=== PATIENT | female | born 1945 | race Caucasian/White ===

== ENCOUNTER 2019-12-09 13:27 | Emergency (ER) | payer MEDICARE, BC, SELFPAY ==
--- NOTE | ~2019-12-09 | XR_ITS ---
XR ribs RT 2V DATE: 12/09/2019 14:02 INDICATION: Fall. Right lower rib pain. TECHNIQUE: 3 views of right ribs COMPARISON: None FINDINGS: There is a recent linear virtually nondisplaced fracture of the posterolateral right eighth rib. There is a fracture of uncertain age along the anterior aspect of the right eighth rib. Additional no ndisplaced rib fracture is not excluded. Osteopenia. Diffuse idiopathic skeletal hyperostosis of the thoracic spine. No right pleural effusion or pneumothorax. Surgical clips, right upper quadrant, consistent with cholecystectomy. IMPRESSION: Right eighth rib fracture(s) Reviewed, dictated and finalized at location A.
[2019-12-09 13:42] VITALS: BP 147/75; PULSE 85; RESP 16; TEMP 37.3; O2SAT 97
--- NOTE | 2019-12-09 13:47 | ED.BACK ---
HPI - Back Pain/Injury General Chief Complaint: Back Pain/Injury Stated Complaint: fall,back injury Time Seen by Provider: 12/09/19 13:44 Source: patient and RN notes reviewed Mode of arrival: ambulatory Limitations: no limitations History of Present Illness HPI Narrative: 74-year-old female presents with concern for right mid back pain after a fall 3 days ago. Reports she fell landing on her right side causing an bruising to her right arm and right knee. Patient reports she is concern for a back injury because she had a slipped disc several years ago. Patient reports she took pain pills and muscle relaxers given to her by her daughter which relieved the pain. She reports pain worsens with deep breathing or coughing. She denies any midline back tenderness. Denies any bruising, redness, open skin. Denies any perianal anesthesia, loss of bowel or bladder function, shortness of breath, abdominal pain. MD elicited complaint: fall Related Data Home Medications Medication Instructions Recorded Confirmed acetaminophen 325 mg tablet 325 mg PO Q6H PRN 08/23/19 08/25/19 aspirin 325 mg tablet,delayed 325 mg PO BID 08/23/19 08/25/19 release calcium carbonate-vitamin D3 600 1 tablet PO BID 08/23/19 08/25/19 mg (1,500 mg)-800 unit tablet celecoxib 200 mg capsule 200 mg PO BID 08/23/19 08/25/19 cholecalciferol (vitamin D3) 25 1,000 unit PO DAILY 08/23/19 08/25/19 mcg (1,000 unit) capsule coenzyme Q10 200 mg capsule 200 mg PO DAILY 08/23/19 08/25/19 glucosamin 375 mg-chond 300 cap PO 08/23/19 08/25/19 mg-collagen 50 mg-hyaluronic acid 2 mg cap romngdis-sxo-qxhcu ac 400 tablet PO 08/23/19 08/25/19 mcg-calcium carb 500 mg-vit K1 20 mcg tablet peg 400-propylene glycol 0.4 %-0.3 1 drop EACH EYE DAILY PRN 08/23/19 08/25/19 % eye drops polyethylene glycol 3350 17 17 gm PO DAILY 08/23/19 08/25/19 gram/dose oral powder sennosides 8.6 mg-docusate sodium 1 tab-cap PO DAILY 01/31/20 02/02/20 50 mg tablet vitamin B complex 1 tablet PO DAILY 08/23/19 08/25/19 Allergies Allergy/AdvReac Type Severity Reaction Status Date / Time Sulfa (Sulfonamide Allergy Mild hives Verified 12/09/19 13:53 Antibiotics) oxycodone Allergy Unknown shaking Verified 12/09/19 13:53 sulfite Allergy Unknown HIVES, Verified 12/09/19 13:53 SWELLING Review of Systems Review of Systems: Narrative: CONSTITUTIONAL: Denies malaise, chills, sweats, or fever. CARDIOVASCULAR: Denies chest pain, palpitations, or edema. RESPIRATORY: Denies dyspnea. GASTROINTESTINAL: Denies abdominal pain GENITOURINARY: Denies dysuria or hematuria. SKIN: Reports right arm and right leg bruising MUSCULOSKELETAL: Denies mid back pain. Reports right posterior rib pain NEUROLOGIC: Denies numbness, weakness, or headache. All systems reviewed & are unremarkable except as noted in HPI and below PMFSH Past Medical History Medical History (Updated 12/09/19 @ 14:29 by Amanda Hackett NP) Arthritis GERD (gastroesophageal reflux disease) Mixed hyperlipidemia Normal nuclear stress test Osteopenia after menopause Syncopal episodes Surgical History Surgical History (Updated 08/25/19 @ 13:45 by Valerie Blackburn MD) History of total knee arthroplasty R Family History Family History (Updated 04/26/18 @ 09:35 by DOCTOR UNKNOWN) Sibling Patient's sister is in good health Family history of diabetes mellitus in first degree relative Father Cerebrovascular accident Family history of arthritis Grandparent Cerebrovascular accident Family history of dementia Mother Family history of lung cancer Social History Social History (Updated 08/23/19 @ 09:51 by Gema Sanchez) Social History: Smoking status: Never smoker Second hand tobacco smoke exposure: No Alcohol intake: never Substance use: never Substance use type: does not use Gender identity (if verbalized by the patient): Female Comments At time of signature,
== END 2019-12-09 14:50 | disposition home or self-care (01) ==
PROVIDERS: Emergency Provider Nurse Practitioner; PCP Family Medicine
DX: S22.41XA Multiple fractures of ribs, right side, 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 for closed fracture (principal); W19.XXXA Unspecified fall, 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; E78.00 Pure hypercholesterolemia, unspecified; K21.9 Gastro-esophageal reflux disease without esophagitis
CPT/HCPCS: 71100; 99213; G0463

== ENCOUNTER 2019-12-24 11:34 | Outpatient (CLI) | payer MEDICARE, BC, SELFPAY ==
--- NOTE | ~2019-12-24 | XR_ITS ---
EXAMINATION: XR knee RT 3V DATE: 12/24/2019 11:57 INDICATION: Right knee pain. TECHNIQUE: 3 views of right knee were obtained. COMPARISON: Right knee radiographs 10/22/2018 FINDINGS: There is a total right knee arthroplasty with patellar resurfacing in near-anatomic alignme nt. No periprosthetic lucency to suggest loosening or infection. No fracture. No knee joint effusion. IMPRESSION: 1. Total right knee arthroplasty in near-anatomic alignment. Reviewed, dictated and finalized at location A.
== END 2019-12-24 11:35 | disposition home or self-care (01) ==
PROVIDERS: PCP Family Medicine; Visit Provider Physician Assistant
DX: S89.91XA Unspecified injury of right lower leg, 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 (principal); X58.XXXA Exposure to other specified factors, 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
CPT/HCPCS: 73562

== ENCOUNTER 2019-12-25 22:41 | Inpatient (IN) | payer MEDICARE, BC, SELFPAY ==
--- NOTE | ~2019-12-25 | XR_ITS ---
EXAMINATION: XR ERCP DATE: 12/27/2019 11:35 INDICATION: Gallstones with right upper quadrant abdominal pain. TECHNIQUE: Fluoroscopic spot images of the right upper quadrant were obtained during endoscopic retro grade cholangiopancreatography (ERCP) performed by Dr. Braden. Radiologist was not present f or the imaging or procedure. The amount of fluoroscopy time used during this procedure was 2.3 minute s. COMPARISON: None. FINDINGS: A catheter and balloon extend from an endoscope into the contrast opacified common bile duct which is dilated to approximately 11 mm. No mucosal irregularities, strictures or stones identified within th e common bile duct. There are also few mildly dilated contrast opacified intrahepatic bile ducts in t he left hepatic lobe. Cholecystectomy clips. IMPRESSION: 1. No evident filling defects within the mildly dilated common bile duct. Please refer to the ERCP pr ocedure note for additional details. Reviewed, dictated and finalized at location A. IMPRESSION: 1. No evident filling defects within the mildly dilated common bile duct. Pleas e refer to the ERCP procedure note for additional details.
--- NOTE | ~2019-12-25 | CT_ITS ---
EXAMINATION: CT abdomen pelvis w con DATE: 12/25/2019 23:58 INDICATION: Generalized abdominal pain. Nausea and vomiting. Diarrhea. TECHNIQUE: Computed tomography (CT) of the abdomen and pelvis was performed with 100 mL Omnipaque 350 intravenous contrast. Automated exposure control and iterative reconstruction technique were employe d. The dose-length product was 693.57 mGy-cm. COMPARISON: None. FINDINGS: The visualized portions of the lung bases. Mild atelectasis. No pleural effusion. The heart size is normal. No pericardial effusion. There is mild intrahepatic biliary duct dilatation and dila tation of the common duct to 11 mm. There is a 6 mm stone in the common bile duct best seen on adorno l images. There are changes of cholecystectomy. The spleen, pancreas, adrenal glands, and right kidne y are normal. There is an 11 mm cyst in left kidney. There is diverticulosis of the colon without bev dence of diverticulitis. There are no dilated loops of bowel. The appendix is normal. There are no pa thologically enlarged lymph nodes. There is no free intraperitoneal fluid. There is severe lower lumb ar spondylosis. IMPRESSION: 1. 6 mm stone in the common bile duct with mild intrahepatic and extrahepatic biliary duct dilatation . Reviewed, dictated and finalized at location A. IMPRESSION: 1. 6 mm stone in the common bile duct with mild intrahepatic and extrahepatic b iliary duct dilatation.
[2019-12-25 22:45] VITALS: BP 142/69; PULSE 94; RESP 19; TEMP 36.7; O2SAT 98
[2019-12-25 23:18] LABS: Basophils Percent Auto 0.1 % (0.2-1.2); Hematocrit 45.7 % (37.0-47.0); Hemoglobin 15.5 g/dL (12.0-15.0); Immature Granulocyte Absolute 0.03 K/mm3 (0.00-0.031); Immature Granulocyte Percent A 0.4 % (0-0.5); Lymphocytes Absolute Auto 0.79 K/mm3 (0.9-3.2); Lymphocytes Percent Auto 9.7 % (18.3-44.2); Mean Corpuscular HGB Conc 33.9 g/dl (32-36); Mean Corpuscular Hemoglobin 30.5 pg (26-34); Mean Corpuscular Volume 89.8 fl (80-100); Mean Platelet Volume 9.7 fl (7.4-10.4); Monocytes Absolute Auto 0.4 K/mm3 (0.1-0.6); Monocytes Percent Auto 4.9 % (2.6-8.5); Neutrophils Absolute Auto 6.9 K/mm3 (1.3-6.7); Neutrophils Percent Auto 84.9 % (45.5-73.1); Platelet Count Result 314 k/mm3 (150-375); Red Blood Count 5.09 M/mm3 (4.2-5.4); Red Cell Distribution Width 12.4 % (11.5-14.5); White Blood Count 8.1 K/mm3 (4.5-10.0)
[2019-12-25 23:25] VITALS: BP 126/85; BP 151/72; PULSE 74; PULSE 87
[2019-12-25 23:27] VITALS: BP 109/73; PULSE 95
[2019-12-25 23:28] VITALS: BP 109/73; PULSE 90; RESP 18; O2SAT 100
[2019-12-25 23:29] LABS: Alanine Aminotransferase 19 U/L (4-35); Albumin Level 4.8 g/dL (3.5-5.1); Alkaline Phosphatase 140 U/L (38-126); Aspartate Amino Transferase 31 U/L (14-36); Bilirubin,Total 0.8 mg/dL (0.2-1.3); Blood Urea Nitrogen 18 mg/dL (7-17); Calcium 10.6 mg/dL (8.4-10.2); Carbon Dioxide 29 mmol/L (22-30); Chloride 97 mmol/L (98-107); Estimated CRCL calculation 49 ml/min; Estimated Glomerular Filt Rate > 60; Glucose 160 mg/dL (65-105); Lipase 67 U/L (23-300); Potassium 3.8 mmol/L (3.4-5.0); Sodium 136 mmol/L (137-145)
[2019-12-25] MEDS: SODIUM CHLORIDE 0.9% IV 1,000 ML 999 ML IV CONT (23:41)
[2019-12-25] MEDS: ONDANSETRON INJ 4 MG/2 ML VIAL IV PUSH (23:41)
[2019-12-25 23:51] LABS: Add Urine Microscopic? YES; Amorphous Sediment Urine Few; Appearance Urine Cloudy (Clear); Bacteria Urine Trace /hpf; Bilirubin Urine Negative (Negative); Blood Urine Negative (Negative); Color Urine Amber (Yellow); Glucose Urine UA Negative (Negative); Ketones Urine 2+ mg/dL (Negative); Leukocyte Esterase Ur Negative LEU/UL (Negative); Mucus Urine Rare /lpf; Nitrate Urine Negative (Negative); Protein Urine 1+ mg/dL (Negative); Specific Grav Ur 1.015 (1.001-1.035); Squamous Epithelial Cell Urine Occasional /hpf (Few); Urobilinogen Urine Negative mg/dL (<2.0)
--- NOTE | 2019-12-25 23:57 | ED.NAVMDI ---
HPI - Nausea/Vomiting/Diarrhea General Chief complaint: Nausea/Vomiting/Diarrhea Stated complaint: VOMITING. Time Seen by Provider: 12/25/19 22:49 Source: RN notes reviewed History of Present Illness HPI Narrative: Patient presents emergency department from home for nausea vomiting diarrhea. Patient states that symptoms started this morning states he is had numerous episodes of nausea vomiting as well as diarrhea patient states is associated with diffuse abdominal pain described as cramping she denies any fevers or chills chest pain shortness of breath or any other symptoms patient does note 2 weeks ago she fell and broke her right rib has been on pain medication for this. She states that she last took tramadol this morning Related Data Home Medications Medication Instructions Recorded Confirmed acetaminophen 325 mg tablet 325 mg PO Q6H PRN 08/23/19 12/24/19 aspirin 325 mg tablet,delayed 325 mg PO BID 08/23/19 12/24/19 release calcium carbonate-vitamin D3 600 1 tablet PO BID 08/23/19 12/24/19 mg (1,500 mg)-800 unit tablet celecoxib 200 mg capsule 200 mg PO BID 08/23/19 12/24/19 cholecalciferol (vitamin D3) 25 1,000 unit PO DAILY 08/23/19 12/24/19 mcg (1,000 unit) capsule coenzyme Q10 200 mg capsule 200 mg PO DAILY 08/23/19 12/24/19 glucosamin 375 mg-chond 300 cap PO 08/23/19 12/24/19 mg-collagen 50 mg-hyaluronic acid 2 mg cap mpkvetzm-uxg-totnb ac 400 tablet PO 08/23/19 12/24/19 mcg-calcium carb 500 mg-vit K1 20 mcg tablet peg 400-propylene glycol 0.4 %-0.3 1 drop EACH EYE DAILY PRN 08/23/19 12/24/19 % eye drops polyethylene glycol 3350 17 17 gm PO DAILY 08/23/19 12/24/19 gram/dose oral powder sennosides 8.6 mg-docusate sodium 1 tab-cap PO DAILY 08/23/19 12/24/19 50 mg tablet vitamin B complex 1 tablet PO DAILY 08/23/19 12/24/19 Allergies Allergy/AdvReac Type Severity Reaction Status Date / Time Sulfa (Sulfonamide Allergy Mild hives Verified 12/24/19 09:59 Antibiotics) oxycodone Allergy Unknown shaking Verified 12/24/19 09:59 sulfite Allergy Unknown HIVES, Verified 12/24/19 09:59 SWELLING Review of Systems Review of Systems: Narrative: Gen.: Denies fevers or chills ENT: Denies congestion Respiratory: Denies shortness of breath or cough CV: Denies chest pain or palpitations GI: See HPI denies burning, urgency, frequency or hematuria Musculoskeletal: Denies back pain or muscle pain Neuro: Denies numbness, tingling, weakness or focal weakness Skin: Denies rash Except as documented, all other systems reviewed and negative [facility] Past Medical History Medical History Arthritis GERD (gastroesophageal reflux disease) Mixed hyperlipidemia Normal nuclear stress test Osteopenia after menopause Syncopal episodes Surgical History Surgical History (Updated 08/25/19 @ 13:45 by Valerie Blackburn MD) History of total knee arthroplasty R Family History Family History (Updated 04/26/18 @ 09:35 by DOCTOR UNKNOWN) Sibling Patient's sister is in good health Family history of diabetes mellitus in first degree relative Father Cerebrovascular accident Family history of arthritis Grandparent Cerebrovascular accident Family history of dementia Mother Family history of lung cancer Social History Social History Social History: Smoking status: Never smoker Second hand tobacco smoke exposure: No Alcohol intake: never Substance use: never Substance use type: does not use Gender identity (if verbalized by the patient): Female Exam Narrative: Exam Narrative: APPEARANCE: No acute distress, nontoxic, resting in bed HEENT: Normocephalic, atraumatic, OMM RESPIRATORY: No respiratory distress, clear to auscultation bilaterally with no rhonchi wheezing or rales CARDIOVASCULAR: RRR s murmur ABDOMINAL: Soft, nondistended, diffusely tender
[2019-12-26 01:07] VITALS: BP 124/50; PULSE 84; RESP 19; TEMP 37.2; O2SAT 100
[2019-12-26 01:50] VITALS: BP 136/60; PULSE 80; RESP 19; TEMP 37; O2SAT 100
[2019-12-26] MEDS: ONDANSETRON INJ 4 MG/2 ML VIAL IV PUSH ×4 (01:51→19:46)
[2019-12-26 02:49] VITALS: BP 126/52; PULSE 75; RESP 19; O2SAT 100
[2019-12-26 03:25] VITALS: BP 125/53; PULSE 88; RESP 19; TEMP 37.2; O2SAT 100
--- NOTE | 2019-12-26 03:37 | ADMGEN ---
This patient, Kristi Agrawal, was admitted to Medical Room 340-01. Patient/family oriented to hospital policies and general routines including ID bracelet, bed and alarms, visiting hours, pain management, procedures, bathroom and other care routines, personal items, smoking policy, room service/diet, and visiting hours. Valuables list has been completed. Information on how to activate the Rapid Response Team has been discussed. Patient/Family are encouraged to report perceived risks to care and to ask questions if they do not understand what they are told or what they should do.
[2019-12-26 03:39] VITALS: BP 145/58; PULSE 79; RESP 16; TEMP 36.2; O2SAT 99
[2019-12-26 03:40] VITALS: BMI 32.1
[2019-12-26] MEDS: SODIUM CHLORIDE 0.9% IV 1,000 ML 125 ML IV CONT ×3 (03:54→21:17)
[2019-12-26] MEDS: PANTOPRAZOLE SODIUM IV 40 MG VIAL IV PUSH (09:30)
[2019-12-26] MEDS: FLUTICASONE PROPIONATE 0.05% NA SPR 16 GM BTL (*BKC) 1 SPRAY NASAL (09:30)
--- NOTE | 2019-12-26 11:30 | PM.IMHP ---
H&P: HPI History of Present Illness Chief complaint: Choledocholithiasis Narrative: Kristi Agrawal is a 74 year old female with PMH significant for GERD, arthritis, osteopenia, and HLD who presented to the ED with c/o nasuea, vomiting, and diarrhea that started yesterday morning. She reports frequent and loose light brown stools, bright yellow vomiting, and profound nausea. She deneis hematemesis, melena, and hematochezia. She also reports dull periumbilical abdominal discomfort. She recently suffered a fall 12/05. She was evaluated in the ED 12/08 and sustained a right eighth rib fracture and notes some residual tenderness in that area. She is s/p cholecystectomy in 1997. She denies chest pain and shortness of breath. She notes belching. She tried to eat a small amount of jello yesterday which caused her to vomit. She has no other concerns at this time. Initial workup in the ED revealed WBC 8,100, Hb 15.5, Hct 45.7, sodium 136, potassium 3.8, chloride 97, CO2 29, BUN 18, Cr 0.8, random glucose of 160, bilirubin 0.8, AST 31, ALT 19, ALP 140, lipase 67, and calcium 10.6. CT abd/pelvis revealed a 6mm in the common bile duct with mild intrahepatic and extrahepatic biliary dilatation. Review of Systems Review of Systems: Narrative: Constitutional: Denies fever and malaise. Reports occasional chills. Appetite is poor at this time due to nausea. Denies weight loss. Eyes: Denies vision change. No additional eye complaints. ENT: Denies change in hearing, nasal congestion, dysphagia, odynophagia, and sore throat. Cardiovascular: Denies palpitations and chest pain. Denies PND and orthopnea. Denies dyspnea on exertion. Respiratory: Denies cough and shortness of breath. Gastrointestinal: As above. Genitourinary: Denies dysuria, frequency, urgency, hematuria, and hesitancy. Musculoskeletal: Reports lower rib discomfort following right 8th rib fracture. Reports mild right knee discomfort after her fall. Denies further joint pain and swelling. Denies muscle cramps and weakness. Skin: Denies lesions or wounds. Neurologic: Denies focal weakness, paresthesias, confusion, and speech change. Psychiatric: Denies mood change. Hematologic: Denies easy bruising and bleeding. She does note bruises from her fall. All systems reviewed & are unremarkable except as noted in HPI and below PMFSH Past Medical History Medical History (Updated 12/26/19 @ 11:57 by Paty Murray PA-C) Arthritis Fracture of one rib, right side, subsequent encounter for fracture with routine healing GERD (gastroesophageal reflux disease) Mixed hyperlipidemia Normal nuclear stress test Osteopenia after menopause Syncopal episodes Surgical History Surgical History (Updated 12/26/19 @ 11:49 by Paty Murray PA-C) History of total knee arthroplasty R S/P carpal tunnel release S/P cholecystectomy Family History Family History (Updated 12/26/19 @ 11:49 by Paty Murray PA-C) Sibling Patient's sister is in good health Father Cerebrovascular accident Grandparent Cerebrovascular accident Mother Lung cancer Social History Social History (Updated 12/26/19 @ 11:52 by Ptay Murray PA-C) Social History: The patient is . 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 She wishes to be a full code and has designated her son Minh Lujan as her surrogate decision maker. Years smoked: 3 Smoking status: Former smoker Tobacco type: cigarettes Second hand tobacco smoke exposure: No Alcohol intake: never Substance use: never Substance use type: does not use Gender identity (if verbalized by the patient): Female Spiritual care concerns: No Meds Home Medications and Allergies Home Medications Medication Instructions Recorded Confirmed Type fluticasone propionate 50 1 spray INTRANASAL BID #3 vial 06/03/19 12/26/19 Rx mcg/actuation nasal spray,suspension acetaminophen
--- NOTE | 2019-12-26 12:32 | WPDGICN ---
Assessment and Plan Assessment and plan (1) Choledocholithiasis: Code(s): K80.50 - Calculus of bile duct without cholangitis or cholecystitis without obstruction Status: Acute Assessment and Plan: will proceed with ERCP tomorrow, continue with supportive care ok to try liquid diet today and npo after midnight (2) Nausea and vomiting in adult: Code(s): R11.2 - Nausea with vomiting, unspecified Status: Acute Assessment and Plan: on medical treatment (3) GERD (gastroesophageal reflux disease): Qualifiers: Esophagitis presence: without esophagitis Qualified Code(s): K21.9 - Gastro-esophageal reflux disease without esophagitis Code(s): K21.9 - Gastro-esophageal reflux disease without esophagitis Status: Chronic (4) Other specified injuries of right lower leg, subsequent encounter: Code(s): S89.81XD - Other specified injuries of right lower leg, subsequent encounter Status: Acute GI Consult Note Consult date/time: 12/26/19 12:32 Reason for consult: n/v, choledocholithiasis HPI: Kristi Agrawal is a 74 year old female with history of GERD, osteopenia with most recent visit to the hospital after she sustained a fall 12/05 with right eighth rib fracture treated medically. She came to ED with new onset of nasuea, vomiting, and diarrhea that started yesterday morning. She also had dull periumbilical abdominal discomfort. She had cholecystectomy in 1997. Blood work showed WBC 8,100, Hb 15.5, bilirubin 0.8, AST 31, ALT 19, ALP 140, lipase 67. CT abd/pelvis revealed a 6mm in the common bile duct with mild intrahepatic and extrahepatic biliary dilatation. She is admitted to the hospital, still nauseous. Denies fever but had some chills. Review of Systems Constitutional: Constitutional: Denies headache(s) and Denies weakness Eyes: Eyes: Denies blurry vision ENT: Reports Normal hearing present, Denies headache(s) and Denies neck pain Cardiovascular: Cardiovascular: Denies chest pain and Denies dyspnea Respiratory: Respiratory: Denies dyspnea Gastrointestinal: Gastrointestinal: Reports diarrhea, Reports nausea and Reports vomiting Genitourinary: Genitourinary: Denies dysuria Musculoskeletal: Musculoskeletal: Denies neck pain Integumentary/Breasts: Skin/Breast: Denies dry skin Neurologic: Reports Normal hearing present, Denies headache(s) and Denies weakness Psychiatric: Psychiatric: Denies anxiety Endocrine: Endocrine: Denies change in body appearance Hematologic/Lymphatic: Hematologic/Lymphatic: Denies easy bleeding Allergic/Immunologic: Allergic/Immunologic: Denies urticaria PMFSH Past Medical History Medical History (Updated 12/26/19 @ 12:36 by Austin Braden MD) Arthritis Fracture of one rib, right side, subsequent encounter for fracture with routine healing GERD (gastroesophageal reflux disease) Mixed hyperlipidemia Nausea and vomiting in adult Normal nuclear stress test Osteopenia after menopause Syncopal episodes Surgical History Surgical History (Updated 12/26/19 @ 11:49 by Paty Murray PA-C) History of total knee arthroplasty R S/P carpal tunnel release S/P cholecystectomy Family History Family History (Updated 12/26/19 @ 11:49 by Paty Murray PA-C) Sibling Patient's sister is in good health Father Cerebrovascular accident Grandparent Cerebrovascular accident Mother Lung cancer Social History Social History (Updated 12/26/19 @ 11:52 by Paty Murray PA-C) Social History: The patient is . 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 She wishes to be a full code and has designated her son Minh Lujan as her surrogate decision maker. Years smoked: 3 Smoking status: Former smoker Tobacco type: cigarettes Second hand tobacco smoke exposure: No Alcohol intake: never Substance use: never Substance use type: does no
[2019-12-26 13:14] LABS: Alanine Aminotransferase 14 U/L (4-35); Albumin Level 3.8 g/dL (3.5-5.1); Alkaline Phosphatase 104 U/L (38-126); Aspartate Amino Transferase 29 U/L (14-36); Bilirubin,Total 0.7 mg/dL (0.2-1.3); Blood Urea Nitrogen 16 mg/dL (7-17); Calcium 8.9 mg/dL (8.4-10.2); Carbon Dioxide 25 mmol/L (22-30); Chloride 106 mmol/L (98-107); Estimated CRCL calculation 48 ml/min; Estimated Glomerular Filt Rate > 60; Glucose 108 mg/dL (65-105); Potassium 3.5 mmol/L (3.4-5.0); Sodium 138 mmol/L (137-145)
[2019-12-26 14:40] VITALS: BP 105/55; PULSE 83; RESP 16; TEMP 36.9; O2SAT 97
[2019-12-27] VITALS (14 sets, daily range): BP systolic 120–170; BP diastolic 53–78; PULSE 57–79; RESP 16–23; TEMP 36.1–37.1; O2SAT 97–100
[2019-12-27] MEDS: SODIUM CHLORIDE 0.9% IV 1,000 ML 125 ML IV CONT ×2 (04:52→16:08)
[2019-12-27 05:38] LABS: Basophils Percent Auto 0.4 % (0.2-1.2); Eosinophils Percent Auto 0.8 % (0-4.4); Hematocrit 37.3 % (37.0-47.0); Hemoglobin 12.1 g/dL (12.0-15.0); Immature Granulocyte Absolute 0.02 K/mm3 (0.00-0.031); Immature Granulocyte Percent A 0.4 % (0-0.5); Lymphocytes Absolute Auto 1.53 K/mm3 (0.9-3.2); Lymphocytes Percent Auto 29.5 % (18.3-44.2); Mean Corpuscular HGB Conc 32.4 g/dl (32-36); Mean Corpuscular Volume 92.3 fl (80-100); Mean Platelet Volume 9.9 fl (7.4-10.4); Monocytes Absolute Auto 0.6 K/mm3 (0.1-0.6); Monocytes Percent Auto 10.6 % (2.6-8.5); Neutrophils Percent Auto 58.3 % (45.5-73.1); Platelet Count Result 235 k/mm3 (150-375); Red Blood Count 4.04 M/mm3 (4.2-5.4); Red Cell Distribution Width 12.6 % (11.5-14.5); White Blood Count 5.2 K/mm3 (4.5-10.0)
[2019-12-27 06:02] LABS: Alanine Aminotransferase 13 U/L (4-35); Albumin Level 3.2 g/dL (3.5-5.1); Alkaline Phosphatase 79 U/L (38-126); Aspartate Amino Transferase 29 U/L (14-36); Bilirubin,Total 0.4 mg/dL (0.2-1.3); Blood Urea Nitrogen 9 mg/dL (7-17); Calcium 8.1 mg/dL (8.4-10.2); Carbon Dioxide 26 mmol/L (22-30); Chloride 107 mmol/L (98-107); Estimated CRCL calculation 55 ml/min; Estimated Glomerular Filt Rate > 60; Glucose 96 mg/dL (65-105); Potassium 3.3 mmol/L (3.4-5.0); Sodium 137 mmol/L (137-145)
--- NOTE | 2019-12-27 08:20 | WPDANESEPPF ---
Anes - Initial Pre Proc Eval Procedure: Operation Date: 12/27/19 10:15 Proposed Procedures p Endoscopic Retro Cholangiopancreatogram - Austin Braden MD Date/Time: 12/27/19 08:20 Pre Op Diagnosis: Choledocholithiasis Patient Data Age: 74 Gender: F Height: 1.52 m Weight: 74.6 kg Last Vital Signs Temp 36.8 C 12/27/19 04:42 Pulse 73 12/27/19 04:42 Resp 18 12/27/19 04:42 BP 120/58 L 12/27/19 04:42 Pulse Ox 98 12/27/19 04:42 Allergies Allergy/AdvReac Type Severity Reaction Status Date / Time Sulfa (Sulfonamide Allergy Mild hives Verified 12/24/19 09:59 Antibiotics) oxycodone Allergy Unknown shaking Verified 12/24/19 09:59 sulfite Allergy Unknown HIVES, Verified 12/24/19 09:59 SWELLING Home Medications Medication Instructions Recorded Confirmed Type fluticasone propionate 50 1 spray INTRANASAL BID #3 vial 06/03/19 12/26/19 Rx mcg/actuation nasal spray,suspension acetaminophen 325 mg tablet 325 mg PO Q6H PRN 08/23/19 12/26/19 History calcium carbonate-vitamin D3 600 1 tablet PO BID 08/23/19 12/26/19 History mg (1,500 mg)-800 unit tablet cholecalciferol (vitamin D3) 25 1,000 unit PO DAILY 08/23/19 12/26/19 History mcg (1,000 unit) capsule coenzyme Q10 200 mg capsule 200 mg PO DAILY 08/23/19 12/26/19 History glucosamin 375 mg-chond 300 1 cap PO DAILY 08/23/19 12/26/19 History mg-collagen 50 mg-hyaluronic acid 2 mg cap sxyxzhjw-lcj-ronke ac 400 1 tablet PO DAILY 08/23/19 12/26/19 History mcg-calcium carb 500 mg-vit K1 20 mcg tablet pantoprazole 40 mg tablet,delayed 40 mg PO QAM #90 tablet 08/23/19 12/26/19 Rx release vitamin B complex 1 tablet PO DAILY 08/23/19 12/26/19 History alendronate 70 mg tablet 70 mg PO WEEKLY #14 tablet 10/07/19 12/26/19 Rx pravastatin 20 mg tablet 20 mg PO DAILY #90 tablet 11/22/19 12/26/19 Rx tramadol 50 mg tablet 50 mg PO Q6H PRN #30 tablet 12/24/19 12/26/19 Rx camphor-methyl salicyl-menthol 1 patch TOPICAL DAILY 12/26/19 12/26/19 History [Salonpas] polyethylene glycol 3350 [Miralax] 17 g PO DAILY PRN 12/26/19 12/26/19 History sennosides [senna] 8.6 mg PO BID PRN 12/26/19 12/26/19 History Laboratory Tests 12/26/19 12/27/19 12/27/19 12:13 04:38 04:38 WBC 5.2 K/mm3 K/mm3 (4.5-10.0) RBC 4.04 M/mm3 L M/mm3 (4.2-5.4) Hgb 12.1 g/dL D g/dL (12.0-15.0) Hct 37.3 % % (37.0-47.0) MCV 92.3 fl fl (80-100) MCH 30.0 pg pg (26-34) MCHC 32.4 g/dl g/dl (32-36) RDW 12.6 % % (11.5-14.5) Plt Count 235 k/mm3 k/mm3 (150-375) MPV 9.9 fl fl (7.4-10.4) Immature Gran % (Auto) 0.4 % % (0-0.5) Neut % (Auto) 58.3 % % (45.5-73.1) Lymph % (Auto) 29.5 % % (18.3-44.2) [place] % (Auto) 10.6 % H % (2.6-8.5) Eos % (Auto) 0.8 % % (0-4.4) Baso % (Auto) 0.4 % % (0.2-1.2) Lymph # (Auto) 1.53 K/mm3 K/mm3 (0.9-3.2) [place] # (Auto) 0.6 K/mm3 K/mm3 (0.1-0.6) Eos # (Auto) 0.0 K/mm3 K/mm3 (0-0.3) Baso # (Auto) 0.0 K/mm3 K/mm3 (0.0-0.1) Abs Immat Gran (auto) 0.02 K/mm3 K/mm3 (0.00-0.031) Absolute Neuts (auto) 3.0 K/mm3 K/mm3 (1.3-6.7) Absolute Nucleated RBC 0.0 K/mm3 K/mm3 (0.0-0.012) Nucleated RBC % 0.0 % % (0.0-0.2) Sodium 138 mmol/L mmol/L 137 mmol/L mmol/L (137-145) (137-145) Potassium 3.5 mmol/L mmol/L 3.3 mmol/L L mmol/L (3.4-5.0) (3.4-5.0) Chloride 106 mmol/L mmol/L 107 mmol/L mmol/L (98-107) (98-107) Carbon Dioxide 25 mmol/L mmol/L 26 mmol/L mmol/L (22-30) (22-30) BUN 16 mg/dL mg/dL 9 mg/dL D mg/dL (7-17) (7-17) Creatinine 0.80 mg/dL mg/dL 0.70 mg/dL mg/dL (0.7-1.0) (0.7-1.0) Estim Creat Clear Calc 48 ml/min ml/min 55 ml/min ml/min Estimated GFR > 60 > 60 (59 - ) (59 - ) Gluc
--- NOTE | 2019-12-27 08:31 | PC.NURSE ---
Spoke with Zeinab in GI lab, she stated that pt could have morning meds before procedure.
[2019-12-27] MEDS: FLUTICASONE PROPIONATE 0.05% NA SPR 16 GM BTL (*BKC) 1 SPRAY NASAL (08:39)
[2019-12-27] MEDS: PANTOPRAZOLE SODIUM IV 40 MG VIAL IV PUSH (08:39)
[2019-12-27] MEDS: LACTATED RINGERS 1,000 ML 150 ML IV CONT ×2 (09:50→11:40)
[2019-12-27] MEDS: INDOMETHACIN 50 MG SUPP.RECT RECTAL (10:41)
[2019-12-27] MEDS: ONDANSETRON INJ 4 MG/2 ML VIAL IV PUSH ×2 (11:48→16:00)
--- NOTE | 2019-12-27 12:15 | SUR.PHASEII ---
1215 - DR. ROBLEDO INFORMED ABOUT PATIENT STATING CHEST PAIN WAS AN 8 AND FELT LIKE SOMEONE WAS SITTING ON IT. EKG ORDERED.
--- NOTE | 2019-12-27 12:20 | ECG_ITS ---
Measurements Intervals [place] Rate: 63 P: 66 ME: 145 QRS: 51 QRSD: 76 T: 58 QT: 433 QTc: 447 Interpretive Statements SINUS RHYTHM WITH SINUS ARRHYTHMIA BASELINE ARTIFACT- I, II, III, AVR, AVL, AVF, V1 NORMAL ECG Electronically Signed On 12-27-2019 12:47:05 CDT by Donte Sanders D.O.
--- NOTE | 2019-12-27 12:22 | SUR.PHASEII ---
1222 - EKG BEING DONE. YESSICA AT BEDSIDE.
--- NOTE | 2019-12-27 12:25 | SUR.PHASEII ---
1225 - REPORT CALLED TO FLOOR NURSE TO UPDATE.
--- NOTE | 2019-12-27 12:33 | SUR.PHASEII ---
1225 - DR ROBLEDO AWARE OF EKG RESULTS. GAVE OK TO TAKE PATIENT BACK TO FLOOR. 1227 - PATIENT STATED THAT PAIN WAS RELIEVING.
--- NOTE | 2019-12-27 12:36 | SUR.PHASEII ---
1230 - FLOOR RN UPDATED.
--- NOTE | 2019-12-27 13:06 | PM.IMPN ---
Progress Note: A&P Assessment and Plan (1) Choledocholithiasis: Code(s): K80.50 - Calculus of bile duct without cholangitis or cholecystitis without obstruction Status: Acute Assessment and Plan: CT abd/pelvis revealed 6 mm stone in the common bile duct with mild intrahepatic and extrahepatic biliary duct dilatation. Lipase was normal and the pt is afebrile without leukocytosis. LFTs have normalized and bilirubin are WNL. She is s/p cholecystectomy in 1992. She underwent ERCP today by Dr. Adams which revealed a clear bile duct without any gallstones. She is having some post-procedure discomfort and nausea. Plan to begin a clear liquid diet and advance as tolerated Continue IV antiemetics PRN Continue IV tylenol PRN. Will avoid narcotics as pt reports hx of adverse reaction with shaking. Continue to monitor (2) GERD (gastroesophageal reflux disease): Qualifiers: Esophagitis presence: without esophagitis Qualified Code(s): K21.9 - Gastro-esophageal reflux disease without esophagitis Code(s): K21.9 - Gastro-esophageal reflux disease without esophagitis Status: Chronic Assessment and Plan: The patient reports a hx of GERD. Her last EGD was 20 years ago. She reports that she was trying to wean herself off of protonix. Continue protonix (3) Mixed hyperlipidemia: Code(s): E78.2 - Mixed hyperlipidemia Status: Chronic Assessment and Plan: ALP was elevated initially which is likely due to choledocholithiasis. LFTs are WNL. Resume pravastatin (4) Osteopenia after menopause: Code(s): M85.80 - Other specified disorders of bone density and structure, unspecified site Status: Chronic Assessment and Plan: She takes alendronate weekly and her last dose was 12/19/19. Pt may resume alendronate as she was due for her dose yesterday (5) Arthritis: Code(s): M19.90 - Unspecified osteoarthritis, unspecified site Status: Acute Assessment and Plan: Will add lidocaine patch Continue analgesics PRN Subjective Date/time seen: 12/27/19 13:06 Interval history: Mrs. Agrawal is seen and examined at bedside in follow-up for choledocholithiasis. She underwent ERCP today and reports post-procedural discomfort in the RUQ/epigastric region and dyspepsia. She also notes nausea. She reports that she did tolerate PO intake last night with minimal nausea. She endorses shoulder blade discomfort which she has intermittently due to her arthritis. She continues to endorse right rib discomfort from her fracture. She denies chest pain, shortness of breath, and palpitations. Review of Systems Review of Systems: All systems reviewed & are unremarkable except as noted in HPI and below Exam Narrative: Exam Narrative: General:Well-developed and well-nourished 74 y.o. female lying supine in bed resting. HEENT: Normocephalic and atraumatic. Sclera anicteric. Conjunctivae and lids normal. EOMI. Mucous membranes tacky. Neck: Supple without lymphadenopathy or masses. Cardiac: Regular rate and rhythm. S1 and S2 normal. No murmur. Lungs: Effort normal. Lungs are clear to auscultation bilaterally. Abdomen: Bowel sounds are normoactive. Abdomen is soft and non-distended. She has tenderness in the epigastic region and RUQ. No guarding or rebound. No organomegaly appreciated. Extremities: No lower extremity edema. Liborio sign negative. Neurological: Alert. No focal neurological deficits noted. CN II-XII grossly intact. Speech is clear. Skin: Warm and dry. Psychiatric: Judgment and insight intact. Mood pleasant and affect normal. Objective Data Vital Signs Vital Signs: Vital Signs - 24 hr 12/26/19 14:40 12/27/19 04:42 12/27/19 10:00 Temperature 98.5 F 98.2 F 97.5 F L Pulse Rate 83 73 65 Respiratory Rate 16 18 18 Blood Pressure 105/55 L 120/58 L 140/71 Pulse Oximetry 97 98 98 12/27/19 11:27 12/27/19 11:37
[2019-12-27] MEDS: POTASSIUM CHLORIDE 20 MEQ TABLET 40 MEQ PO (14:22)
[2019-12-27] MEDS: LIDOCAINE 5% PATCH 1 PATCH TRANSDERM (15:13)
[2019-12-27] MEDS: TRAMADOL HCL 50 MG TABLET PO (17:25)
[2019-12-28] MEDS: SODIUM CHLORIDE 0.9% IV 1,000 ML 125 ML IV CONT ×3 (00:09→16:23)
[2019-12-28] MEDS: TRAMADOL HCL 50 MG TABLET PO (02:20)
[2019-12-28 03:40] VITALS: BP 140/56; PULSE 67; RESP 16; TEMP 36.1; O2SAT 99
[2019-12-28] MEDS: SIMETHICONE 80 MG TAB.CHEW PO (06:19)
--- NOTE | 2019-12-28 08:04 | WPDANESPN ---
Anes - Prog Note Post-Op Date/Time: 12/28/19 08:04 Cardiovascular status: normal Respiratory status: normal Airway patency: baseline Mental status: baseline Post-Op hydration status: normal Vital Signs: Last Vital Signs Temp 36.1 C L 12/28/19 03:40 Pulse 67 12/28/19 03:40 Resp 16 12/28/19 03:40 BP 140/56 L 12/28/19 03:40 Pulse Ox 99 12/28/19 03:40 I/O: Intake & Output 12/27/19 12/28/19 12/28/19 23:59 07:59 15:59 Intake Total 150 1400 Output Total 200 850 Balance -50 550 Laboratory Tests 12/27/19 04:38 12/27/19 04:38 Post-procedural complaints: none Patient Feedback: Patient satisfied with anesthetic care.
[2019-12-28] MEDS: CHOLECALCIFEROL 1,000 UNIT TABLET 1000 UNITS PO (08:15)
[2019-12-28] MEDS: PANTOPRAZOLE 40 MG TABLET PO (08:16)
[2019-12-28] MEDS: PRAVASTATIN SODIUM 20 MG TABLET PO (08:16)
[2019-12-28] MEDS: LIDOCAINE 5% PATCH 1 PATCH TRANSDERM (08:16)
[2019-12-28] MEDS: FLUTICASONE PROPIONATE 0.05% NA SPR 16 GM BTL (*BKC) 1 SPRAY NASAL (08:16)
[2019-12-28] MEDS: THERAPEUTIC MULTIVITAMINS/MINERALS TAB (*BKC) 1 TABLET PO (08:16)
[2019-12-28] MEDS: VITAMIN B COMPLEX CAPSULE 1 CAP PO (08:16)
[2019-12-28 08:25] LABS: Hematocrit 40.4 % (37.0-47.0); Hemoglobin 13.6 g/dL (12.0-15.0); Mean Corpuscular HGB Conc 33.7 g/dl (32-36); Mean Corpuscular Hemoglobin 30.3 pg (26-34); Mean Platelet Volume 9.6 fl (7.4-10.4); Platelet Count Result 244 k/mm3 (150-375); Red Blood Count 4.49 M/mm3 (4.2-5.4); Red Cell Distribution Width 12.4 % (11.5-14.5); White Blood Count 11.5 K/mm3 (4.5-10.0)
[2019-12-28 08:52] LABS: Blood Urea Nitrogen 7 mg/dL (7-17); Calcium 8.1 mg/dL (8.4-10.2); Carbon Dioxide 25 mmol/L (22-30); Chloride 102 mmol/L (98-107); Estimated CRCL calculation 63 ml/min; Estimated Glomerular Filt Rate > 60; Glucose 126 mg/dL (65-105); Potassium 3.4 mmol/L (3.4-5.0); Sodium 133 mmol/L (137-145)
[2019-12-28 09:03] LABS: Magnesium 1.5 mg/dL (1.6-2.3)
--- NOTE | 2019-12-28 11:00 | PM.IMPN ---
Progress Note: A&P Assessment and Plan (1) Choledocholithiasis: Code(s): K80.50 - Calculus of bile duct without cholangitis or cholecystitis without obstruction Status: Acute Assessment and Plan: CT abd/pelvis revealed 6 mm stone in the common bile duct with mild intrahepatic and extrahepatic biliary duct dilatation. Lipase was normal and the pt is afebrile without leukocytosis. LFTs normalized. She is s/p cholecystectomy in 1992. She underwent ERCP 12/29/[address] Adams which revealed a clear bile duct without any gallstones. She likely passed the gallstone. She had post-procedural discomfort and dyspepsia which she reports has resolved today. Continue simethicone PRN. She is tolerating a full liquid diet. She does note mild nausea. Plan to continue full liquid for lunch and advance to low fat for dinner as tolerated. Continue antiemetics and analgesics PRN. Will continue to monitor. Hopeful discharge tomorrow. (2) GERD (gastroesophageal reflux disease): Qualifiers: Esophagitis presence: without esophagitis Qualified Code(s): K21.9 - Gastro-esophageal reflux disease without esophagitis Code(s): K21.9 - Gastro-esophageal reflux disease without esophagitis Status: Chronic Assessment and Plan: The patient reports a hx of GERD. Her last EGD was 20 years ago. Plan to continue protonix. I have advised that she continue protonix at discharge. (3) Mixed hyperlipidemia: Code(s): E78.2 - Mixed hyperlipidemia Status: Chronic Assessment and Plan: ALP was elevated initially which is likely due to choledocholithiasis. LFTs have normalized. Will resume pravastatin. (4) Osteopenia after menopause: Code(s): M85.80 - Other specified disorders of bone density and structure, unspecified site Status: Chronic Assessment and Plan: She takes alendronate weekly. She can continue alendronate as scheduled. (5) Arthritis: Code(s): M19.90 - Unspecified osteoarthritis, unspecified site Status: Chronic Assessment and Plan: Continue lidocaine patch PRN, ice pack PRN, and analgesics. (6) DVT prophylaxis: Code(s): Z29.9 - Encounter for prophylactic measures, unspecified Status: Acute Assessment and Plan: She expresses that she does not like the SCDs so will begin lovenox SQ for DVT prophylaxis. Time Spent With Patient Time with patient: 15 - 25 minutes Subjective Date/time seen: 12/28/19 11:00 Interval history: Mrs. Agrawal is seen and examined at bedside in follow-up for for choledocholithiasis. She is feeling much better today. She states she did not sleep overnight due to dyspepsia but that has resolved. She is no longer having any abdominal discomfort. She reports nausea. She denies vomiting. She was able to eat a small amount of her full liquid diet for breakfast without any issues. She denies chest pain, shortness of breath, and palpitations. She had a bowel movement and is passing flatus. Review of Systems Review of Systems: All systems reviewed & are unremarkable except as noted in HPI and below Exam Narrative: Exam Narrative: General: Pleasant, well-developed and well-nourished 74 y.o. lying supine in bed in no acute distress. She is non-toxic in appearance. HEENT: Normocephalic and atraumatic. Sclera anicteric. Conjunctiva normal. EOMI. Mucous membranes tacky. Neck: Supple without lymphadenopathy or masses. Cardiac: Regular rate and rhythm. S1 and S2 normal. Lungs: Effort normal. Lungs are clear to auscultation bilaterally. Abdomen: Normoactive bowel sounds. Abdomen is soft, non-distended, and non-tender. No guarding or rebound present. Extremities: No edema to the lower extremities bilaterally. Liborio sign negative. 2+ DP and PT. Neurological: Alert. No focal neurological deficits noted. Speech is clear. Skin: Warm and dry. Psychiatric: Judgment and insight intact. Mood pleasant and affect n
[2019-12-28] MEDS: ENOXAPARIN 40 MG/0.4 ML SYRINGE SUB-Q (11:42)
[2019-12-28] MEDS: MAGNESIUM OXIDE 200 MG TABLET PO ×2 (11:42→20:32)
--- NOTE | 2019-12-28 12:19 | WPDGIPROGNO ---
Progress Note: A&P Assessment and Plan (1) Choledocholithiasis: Code(s): K80.50 - Calculus of bile duct without cholangitis or cholecystitis without obstruction Status: Acute Assessment and Plan: ercp with sphincterotomy and bile duct sweep- no obvious stone but clean duct ok to advance diet, she is feeling better today (2) Nausea and vomiting in adult: Code(s): R11.2 - Nausea with vomiting, unspecified Status: Acute Assessment and Plan: improved continue with medical treatment (3) Rib fracture: Qualifiers: Encounter type: sequela Rib fracture type: single rib Fracture type: closed Laterality: right Qualified Code(s): S22.31XS - Fracture of one rib, right side, sequela Code(s): S22.39XA - Fracture of one rib, unspecified side, 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 for closed fracture Status: Acute Assessment and Plan: on pain meds Subjective Date/time seen: 12/28/19 12:19 Interval history: she had nausea and bloating last night but today feeling much better, still discomfort in back from recent fall and rib fracture ERCP yesterday with sphincterotomy and sweeping bile duct which was clear Review of Systems Review of Systems: All systems reviewed & are unremarkable except as noted in HPI and below Exam Const: General: comfortable and no acute distress HENMT: General nose exam: Normal nares present Eyes: General: appearance normal, both eyes and all related structures Neck: Neck: no JVD Resp: Auscultation: clear to auscultation bilaterally Cardio: Rate: regular rate Rhythm: regular rhythm GI: Inspection: non-distended GI Palp: Yes Soft to palpation Skin: General skin exam: normal color Neuro: General: gait normal Speech: normal speech Extrem: General: normal to inspection Psych: Mental Status: mental status grossly normal Objective Data Vital Signs Vital Signs: Vital Signs - 24 hr 12/27/19 12:27 12/27/19 13:10 12/27/19 13:25 Temperature 97.9 F 98.6 F Pulse Rate 57 L 66 76 Respiratory Rate 21 H 18 18 Blood Pressure 145/61 H 151/68 H 143/54 H Pulse Oximetry 99 100 97 12/27/19 13:55 12/27/19 14:55 12/27/19 19:47 Temperature 98.7 F 98.7 F 97 F L Pulse Rate 78 79 78 Respiratory Rate 16 16 16 Blood Pressure 143/54 H 126/59 L 132/64 Pulse Oximetry 99 100 97 12/28/19 03:40 Temperature 97 F L Pulse Rate 67 Respiratory Rate 16 Blood Pressure 140/56 L Pulse Oximetry 99 Intake/Output Intake/Output: Intake & Output 12/25/19 12/26/19 12/27/19 12/28/19 23:59 23:59 23:59 23:59 Intake Total 100 3680 3000 2640 Output Total 400 2550 1550 Balance 100 3280 450 1090 Meds/Results Medications: Active Medications Generic Name Dose Route Start Last Admin Trade Name Freq PRN Reason Stop Dose Admin Acetaminophen 650 mg 12/28/19 11:06 Tylenol Tablet PO Q4H PRN Pain 1-5 Alendronate Sodium 70 mg 01/01/20 06:30 Fosamax PO We@0630 RAMAN Enoxaparin Sodium 40 mg 12/28/19 11:15 12/28/19 11:42 Lovenox SUB-Q 40 mg DAILY RAMAN Administration Fluticasone Propionate 1 spray 12/26/19 09:00 12/28/19 08:16 Flonase 0.05% Nasal [place] NASAL 1 spray BID RAMAN Administration Sodium Chloride 1,000 mls @ 125 mls/hr 12/26/19 03:05 12/28/19 08:12 Normal Saline Iv IV CONT 125 mls/hr .Q8H RAMAN Administration Lidocaine 1 patch 12/27/19 13:50 12/28/19 08:16 Lidoderm TRANSDERM 1 patch DAILY RAMAN Administration Magnesium Oxide 200 mg 12/28/19 09:00 12/28/19 11:42 Mag-Ox PO 200 mg Q12HR ARMAN Administration Multivitamins/Calcium 1 tablet 12/28/19 09:00 12/28/19 08:16 Therapeutic Multivitamins/Minerals PO 1 tablet DAILY RAMAN Administration Ondansetron HCl 4 mg 12/26/19 03:04 12/27/19 16:00 Zofran Inj IV PUSH 4 mg Q4H PRN Administration Nausea Pantoprazole Sodium 40 mg 12/28/19 09:00 12/28/19 08:16 Protonix PO 40 mg QAM RAMAN Administration
[2019-12-28 14:00] VITALS: BP 147/63; PULSE 92; RESP 18; TEMP 36.4; O2SAT 99
[2019-12-28] MEDS: ACETAMINOPHEN 325 MG TABLET 650 MG PO (18:49)
[2019-12-28 19:41] VITALS: BP 112/71; PULSE 86; RESP 16; TEMP 36.5; O2SAT 96
[2019-12-29] MEDS: SODIUM CHLORIDE 0.9% IV 1,000 ML 125 ML IV CONT ×2 (00:25→08:23)
[2019-12-29 05:37] VITALS: BP 119/53; PULSE 77; RESP 18; TEMP 36.2; O2SAT 96
[2019-12-29 05:50] LABS: Basophils Percent Auto 0.1 % (0.2-1.2); Eosinophils Percent Auto 0.2 % (0-4.4); Hematocrit 35.6 % (37.0-47.0); Hemoglobin 11.9 g/dL (12.0-15.0); Immature Granulocyte Absolute 0.02 K/mm3 (0.00-0.031); Immature Granulocyte Percent A 0.2 % (0-0.5); Lymphocytes Absolute Auto 0.38 K/mm3 (0.9-3.2); Lymphocytes Percent Auto 4.3 % (18.3-44.2); Mean Corpuscular HGB Conc 33.4 g/dl (32-36); Mean Corpuscular Hemoglobin 30.4 pg (26-34); Mean Platelet Volume 10.3 fl (7.4-10.4); Monocytes Absolute Auto 0.7 K/mm3 (0.1-0.6); Monocytes Percent Auto 7.7 % (2.6-8.5); Neutrophils Absolute Auto 7.7 K/mm3 (1.3-6.7); Neutrophils Percent Auto 87.5 % (45.5-73.1); Platelet Count Result 190 k/mm3 (150-375); Red Blood Count 3.91 M/mm3 (4.2-5.4); White Blood Count 8.8 K/mm3 (4.5-10.0)
[2019-12-29 06:05] LABS: Alanine Aminotransferase 375 U/L (4-35); Alkaline Phosphatase 123 U/L (38-126); Aspartate Amino Transferase 272 U/L (14-36); Bilirubin,Total 4.7 mg/dL (0.2-1.3); Blood Urea Nitrogen 6 mg/dL (7-17); Calcium 7.6 mg/dL (8.4-10.2); Carbon Dioxide 23 mmol/L (22-30); Chloride 106 mmol/L (98-107); Estimated CRCL calculation 63 ml/min; Estimated Glomerular Filt Rate > 60; Glucose 118 mg/dL (65-105); Magnesium 1.9 mg/dL (1.6-2.3); Potassium 3.2 mmol/L (3.4-5.0); Sodium 135 mmol/L (137-145)
[2019-12-29 07:29] LABS: Hemoglobin A1C 5.7 % (<5.7)
[2019-12-29] MEDS: POTASSIUM CHLORIDE 20 MEQ TABLET 40 MEQ PO (08:12)
[2019-12-29] MEDS: FLUTICASONE PROPIONATE 0.05% NA SPR 16 GM BTL (*BKC) 1 SPRAY NASAL ×2 (08:12→17:31)
[2019-12-29] MEDS: CHOLECALCIFEROL 1,000 UNIT TABLET 1000 UNITS PO (08:13)
[2019-12-29] MEDS: MAGNESIUM OXIDE 200 MG TABLET PO (08:13)
[2019-12-29] MEDS: VITAMIN B COMPLEX CAPSULE 1 CAP PO (08:13)
[2019-12-29] MEDS: ENOXAPARIN 40 MG/0.4 ML SYRINGE SUB-Q (08:14)
[2019-12-29] MEDS: THERAPEUTIC MULTIVITAMINS/MINERALS TAB (*BKC) 1 TABLET PO (08:14)
[2019-12-29] MEDS: LIDOCAINE 5% PATCH 1 PATCH TRANSDERM (08:14)
[2019-12-29] MEDS: PANTOPRAZOLE 40 MG TABLET PO (08:14)
[2019-12-29 08:27] VITALS: PULSE 80; RESP 18; O2SAT 97
--- NOTE | 2019-12-29 12:09 | PM.IMPN ---
Progress Note: A&P Assessment and Plan (1) Choledocholithiasis: Code(s): K80.50 - Calculus of bile duct without cholangitis or cholecystitis without obstruction Status: Acute Assessment and Plan: CT abd/pelvis revealed 6 mm stone in the common bile duct with mild intrahepatic and extrahepatic biliary duct dilatation. Lipase was normal and the pt is afebrile without leukocytosis. LFTs normalized. She is s/p cholecystectomy in 1992. She underwent ERCP 12/29/[address] Adams which revealed a clear bile duct without any gallstones. She likely passed the gallstone. She had post-procedural discomfort and dyspepsia which resolved. She still had mild nauesa today. She is tolerating a regular diet. Continue antiemetics and analgesics PRN. LFTs and bilirubin are elevated. I discussed with GI and we will monitor her overnight. (2) Elevated liver enzymes: Code(s): R74.8 - Abnormal levels of other serum enzymes Status: Acute Assessment and Plan: LFTs are elevated with AST 272 and ALT 375. Bilirubin is elevated at 4.7. She is s/p ERCP 12/26. Discussed with GI and we will plan to monitor overnight with repeat labs tomorrow. If labs are persistently elevated, she may require ERCP. (3) GERD (gastroesophageal reflux disease): Qualifiers: Esophagitis presence: without esophagitis Qualified Code(s): K21.9 - Gastro-esophageal reflux disease without esophagitis Code(s): K21.9 - Gastro-esophageal reflux disease without esophagitis Status: Chronic Assessment and Plan: The patient reports a hx of GERD. Her last EGD was 20 years ago. Will continue protonix. I have advised that she continue protonix at discharge. (4) Mixed hyperlipidemia: Code(s): E78.2 - Mixed hyperlipidemia Status: Chronic Assessment and Plan: LFTs are elevated today. AST is 272 and ALT 375. Hold pravastatin. Resume when clinically appropriate. (5) Osteopenia after menopause: Code(s): M85.80 - Other specified disorders of bone density and structure, unspecified site Status: Chronic Assessment and Plan: She takes alendronate weekly. She can continue alendronate as scheduled. (6) Arthritis: Code(s): M19.90 - Unspecified osteoarthritis, unspecified site Status: Chronic Assessment and Plan: Continue lidocaine patch PRN, ice pack PRN, and analgesics. (7) Rib fracture: Qualifiers: Encounter type: sequela Rib fracture type: single rib Fracture type: closed Laterality: right Qualified Code(s): S22.31XS - Fracture of one rib, right side, sequela Code(s): S22.39XA - Fracture of one rib, unspecified side, 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 for closed fracture Status: Acute Assessment and Plan: She suffered a right eighth rib fracture 12/06/19. She has mild pain which is improving. Plan to continue lidocaine patch and analgesics PRN. (8) DVT prophylaxis: Code(s): Z29.9 - Encounter for prophylactic measures, unspecified Status: Acute Assessment and Plan: Continue lovenox SQ. Time Spent With Patient Time with patient: 15 - 25 minutes Subjective Date/time seen: 12/29/19 12:09 Interval history: Mrs. Agrawal is seen and examined in follow-up for choledocholithiasis. She reports nausea today. She is not having any abdominal pain and denies vomiting. She is tolerating her diet well. She denies subjective fever and chill. She denies chest pain and dyspnea. She is passing flatus. Her last bowel movement was 2 days ago. She has no other concerns today. Review of Systems Review of Systems: All systems reviewed & are unremarkable except as noted in HPI and below Exam Narrative: Exam Narrative: General: Very pleasant, well-developed and well-nourished 74 y.o. lying in the semi-recumbent position in bed in no acute distress. HEENT: Normocephalic and atraumatic. Mild scleral icterus. Conjunctiva normal.
--- NOTE | 2019-12-29 12:14 | WPDGIPROGNO ---
Progress Note: A&P Assessment and Plan (1) Choledocholithiasis: Code(s): K80.50 - Calculus of bile duct without cholangitis or cholecystitis without obstruction Status: Acute Assessment and Plan: ercp on Monday, still with nausea but no pain will check lipase in am (2) Elevated liver enzymes: Code(s): R74.8 - Abnormal levels of other serum enzymes Status: Acute Assessment and Plan: elevated bili, duct cleaned and clear but wonder if could have clot/bleeding afterward, will repeat lft's in the morning and if still high consider to repeat ERCP to reassess and possibly place biliary stent this time. This was discussed with patient (3) Nausea: Code(s): R11.0 - Nausea Status: Acute Assessment and Plan: no more vomiting, tolerating diet (4) Rib fracture: Qualifiers: Encounter type: sequela Rib fracture type: single rib Fracture type: closed Laterality: right Qualified Code(s): S22.31XS - Fracture of one rib, right side, sequela Code(s): S22.39XA - Fracture of one rib, unspecified side, 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 for closed fracture Status: Acute Assessment and Plan: pain in right side, unchanged Subjective Date/time seen: 12/29/19 12:14 Interval history: still with nausea but eating, no pain or vomiting. She had discomfort the evening after ERCP but now back to baseline with some nausea Review of Systems Review of Systems: All systems reviewed & are unremarkable except as noted in HPI and below Exam Const: General: comfortable and no acute distress HENMT: General nose exam: Normal nares present Eyes: General: appearance normal, both eyes and all related structures Neck: Neck: no JVD Resp: Auscultation: clear to auscultation bilaterally Cardio: Rate: regular rate Rhythm: regular rhythm GI: Inspection: non-distended GI Palp: Yes Soft to palpation Skin: General skin exam: normal color Neuro: General: gait normal Speech: normal speech Extrem: General: normal to inspection Psych: Mental Status: mental status grossly normal Objective Data Vital Signs Vital Signs: Vital Signs - 24 hr 12/28/19 14:00 12/28/19 19:41 12/29/19 05:37 Temperature 97.5 F L 97.7 F 97.2 F L Pulse Rate 92 86 77 Respiratory Rate 18 16 18 Blood Pressure 147/63 H 112/71 119/53 L Pulse Oximetry 99 96 96 12/29/19 08:27 Temperature Pulse Rate 80 Respiratory Rate 18 Blood Pressure Pulse Oximetry 97 Intake/Output Intake/Output: Intake & Output 12/26/19 12/27/19 12/28/19 12/29/19 23:59 23:59 23:59 23:59 Intake Total 3680 3000 4430 2640 Output Total 400 2550 2950 1150 Balance 3280 450 1480 1490 Meds/Results Medications: Active Medications Generic Name Dose Route Start Last Admin Trade Name Freq PRN Reason Stop Dose Admin Acetaminophen 650 mg 12/28/19 11:06 12/28/19 18:49 Tylenol Tablet PO 650 mg Q4H PRN Administration Pain 1-5 Alendronate Sodium 70 mg 01/01/20 06:30 Fosamax PO We@0630 RAMAN Enoxaparin Sodium 40 mg 12/28/19 11:15 12/29/19 08:14 Lovenox SUB-Q 40 mg DAILY RAMAN Administration Fluticasone Propionate 1 spray 12/26/19 09:00 12/29/19 08:12 Flonase 0.05% Nasal [place] NASAL 1 spray BID RAMAN Administration Lidocaine 1 patch 12/27/19 13:50 12/29/19 08:14 Lidoderm TRANSDERM 1 patch DAILY RAMAN Administration Magnesium Oxide 200 mg 12/28/19 09:00 12/29/19 08:13 Mag-Ox PO 200 mg Q12HR RAMAN Administration Multivitamins/Calcium 1 tablet 12/28/19 09:00 12/29/19 08:14 Therapeutic Multivitamins/Minerals PO 1 tablet DAILY RAMAN Administration Ondansetron HCl 4 mg 12/26/19 03:04 12/27/19 16:00 Zofran Inj IV PUSH 4 mg Q4H PRN Administration Nausea Pantoprazole Sodium 40 mg 12/28/19 09:00 12/29/19 08:14 Protonix PO 40 mg QAM RAMAN Administration Polyethylene Glycol 17 gm 12/27/19 13:24 Miralax PO DAILY PRN Co
[2019-12-29 14:00] VITALS: BP 148/57; PULSE 85; RESP 18; TEMP 35.7; O2SAT 98
[2019-12-29] MEDS: TRAMADOL HCL 50 MG TABLET PO (14:04)
[2019-12-29 21:01] VITALS: BP 154/67; PULSE 94; RESP 15; TEMP 36.4; O2SAT 96
[2019-12-30 04:41] VITALS: BP 150/67; PULSE 88; RESP 15; TEMP 36.1; O2SAT 97
[2019-12-30 04:44] LABS: Hematocrit 37.4 % (37.0-47.0); Hemoglobin 12.6 g/dL (12.0-15.0); Mean Corpuscular HGB Conc 33.7 g/dl (32-36); Mean Corpuscular Hemoglobin 30.4 pg (26-34); Mean Corpuscular Volume 90.3 fl (80-100); Mean Platelet Volume 10.1 fl (7.4-10.4); Platelet Count Result 183 k/mm3 (150-375); Red Blood Count 4.14 M/mm3 (4.2-5.4); Red Cell Distribution Width 12.7 % (11.5-14.5); White Blood Count 5.5 K/mm3 (4.5-10.0)
[2019-12-30 05:10] LABS: Alanine Aminotransferase 294 U/L (4-35); Albumin Level 3.3 g/dL (3.5-5.1); Alkaline Phosphatase 152 U/L (38-126); Aspartate Amino Transferase 173 U/L (14-36); Bilirubin,Total 3.2 mg/dL (0.2-1.3); Blood Urea Nitrogen 6 mg/dL (7-17); Calcium 8.2 mg/dL (8.4-10.2); Carbon Dioxide 25 mmol/L (22-30); Chloride 103 mmol/L (98-107); Estimated CRCL calculation 63 ml/min; Estimated Glomerular Filt Rate > 60; Glucose 105 mg/dL (65-105); Lipase 67 U/L (23-300); Potassium 3.2 mmol/L (3.4-5.0); Sodium 133 mmol/L (137-145)
--- NOTE | 2019-12-30 08:09 | WPDGIPROGNO ---
Progress Note: A&P Assessment and Plan (1) Choledocholithiasis: Code(s): K80.50 - Calculus of bile duct without cholangitis or cholecystitis without obstruction Status: Acute Assessment and Plan: ercp on Monday, less nausea and has been tolerating diet TB down to 3 today, denies pain She can go home today, repeat cmp in 1 wee and I will see her in office She is feeling like going home today no fever, normal wbc (2) Elevated liver enzymes: Code(s): R74.8 - Abnormal levels of other serum enzymes Status: Acute Assessment and Plan: post-ercp but TB downtrending, no pancreatitis will repeat lft's in 1 week (3) Nausea: Code(s): R11.0 - Nausea Status: Acute Assessment and Plan: no more vomiting, tolerating diet (4) Rib fracture: Qualifiers: Encounter type: sequela Rib fracture type: single rib Fracture type: closed Laterality: right Qualified Code(s): S22.31XS - Fracture of one rib, right side, sequela Code(s): S22.39XA - Fracture of one rib, unspecified side, 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 for closed fracture Status: Acute Assessment and Plan: pain in right side, unchanged Subjective Date/time seen: 12/30/19 08:09 Interval history: no abdominal pain, nausea is improved. Review of Systems Review of Systems: All systems reviewed & are unremarkable except as noted in HPI and below Exam Const: General: comfortable and no acute distress HENMT: General nose exam: Normal nares present Eyes: General: appearance normal, both eyes and all related structures Neck: Neck: no JVD Resp: Auscultation: clear to auscultation bilaterally Cardio: Rate: regular rate Rhythm: regular rhythm GI: Inspection: non-distended GI Palp: Yes Soft to palpation Skin: General skin exam: normal color Neuro: General: gait normal Speech: normal speech Extrem: General: normal to inspection Psych: Mental Status: mental status grossly normal Objective Data Vital Signs Vital Signs: Vital Signs - 24 hr 12/29/19 08:27 12/29/19 14:00 12/29/19 21:01 Temperature 96.3 F L 97.5 F L Pulse Rate 80 85 94 Respiratory Rate 18 18 15 Blood Pressure 148/57 H 154/67 H Pulse Oximetry 97 98 96 12/30/19 04:41 Temperature 97 F L Pulse Rate 88 Respiratory Rate 15 Blood Pressure 150/67 H Pulse Oximetry 97 Intake/Output Intake/Output: Intake & Output 12/27/19 12/28/19 12/29/19 12/30/19 23:59 23:59 23:59 23:59 Intake Total 3000 4430 3680 200 Output Total 2550 2950 3200 800 Balance 450 1480 480 -600 Meds/Results Medications: Active Medications Generic Name Dose Route Start Last Admin Trade Name Freq PRN Reason Stop Dose Admin Acetaminophen 650 mg 12/28/19 11:06 12/28/19 18:49 Tylenol Tablet PO 650 mg Q4H PRN Administration Pain 1-5 Alendronate Sodium 70 mg 01/01/20 06:30 Fosamax PO We@0630 RAMAN Enoxaparin Sodium 40 mg 12/28/19 11:15 12/29/19 08:14 Lovenox SUB-Q 40 mg DAILY RAMAN Administration Fluticasone Propionate 1 spray 12/26/19 09:00 12/29/19 17:31 Flonase 0.05% Nasal [employer] NASAL 1 spray BID RAMAN Administration Lidocaine 1 patch 12/27/19 13:50 12/29/19 08:14 Lidoderm TRANSDERM 1 patch DAILY RAMAN Administration Multivitamins/Calcium 1 tablet 12/28/19 09:00 12/29/19 08:14 Therapeutic Multivitamins/Minerals PO 1 tablet DAILY RAMAN Administration Ondansetron HCl 4 mg 12/26/19 03:04 12/27/19 16:00 Zofran Inj IV PUSH 4 mg Q4H PRN Administration Nausea Pantoprazole Sodium 40 mg 12/28/19 09:00 12/29/19 08:14 Protonix PO 40 mg QAM RAMAN Administration Polyethylene Glycol 17 gm 12/27/19 13:24 Miralax PO DAILY PRN Constipation Pravastatin Sodium 20 mg 12/28/19 09:00 12/28/19 08:16 Pravastatin Sodium PO 20 mg DAILY RAMAN Administration Simethicone 80 mg 12/28/19 05:58 12/28/19 06:19 Mylicon PO 80 mg ONCE PRN Adm
[2019-12-30] MEDS: FLUTICASONE PROPIONATE 0.05% NA SPR 16 GM BTL (*BKC) 1 SPRAY NASAL ×2 (09:06→17:15)
[2019-12-30] MEDS: POTASSIUM CHLORIDE 20 MEQ TABLET 40 MEQ PO (09:06)
[2019-12-30] MEDS: THERAPEUTIC MULTIVITAMINS/MINERALS TAB (*BKC) 1 TABLET PO (09:06)
[2019-12-30 09:07] VITALS: PULSE 88; RESP 16; O2SAT 97
[2019-12-30] MEDS: PANTOPRAZOLE 40 MG TABLET PO (09:07)
[2019-12-30] MEDS: VITAMIN B COMPLEX CAPSULE 1 CAP PO (09:07)
[2019-12-30] MEDS: LIDOCAINE 5% PATCH 1 PATCH TRANSDERM (09:07)
[2019-12-30] MEDS: CHOLECALCIFEROL 1,000 UNIT TABLET 1000 UNITS PO (09:07)
--- NOTE | 2019-12-30 09:09 | PC.NURSE ---
Patient getting discharged and refused 0900 dose of Lovenox. Paty peña.
--- NOTE | 2019-12-30 10:33 | PM.DS ---
DS: Admitting Diagnosis Admitting Diagnosis Admitting Diagnosis: Calculus of bile duct without cholangitis or cholecystitis without obstruction DS: Discharge Diagnosis Discharge Diagnosis (1) Choledocholithiasis: Code(s): K80.50 - Calculus of bile duct without cholangitis or cholecystitis without obstruction Status: Acute Assessment and Plan: (2) Elevated liver enzymes: Code(s): R74.8 - Abnormal levels of other serum enzymes Status: Acute Assessment and Plan: (3) GERD (gastroesophageal reflux disease): Qualifiers: Esophagitis presence: without esophagitis Qualified Code(s): K21.9 - Gastro-esophageal reflux disease without esophagitis Code(s): K21.9 - Gastro-esophageal reflux disease without esophagitis Status: Chronic (4) Mixed hyperlipidemia: Code(s): E78.2 - Mixed hyperlipidemia Status: Chronic (5) Osteopenia after menopause: Code(s): M85.80 - Other specified disorders of bone density and structure, unspecified site Status: Chronic (6) Arthritis: Code(s): M19.90 - Unspecified osteoarthritis, unspecified site Status: Chronic (7) Rib fracture: Qualifiers: Encounter type: sequela Rib fracture type: single rib Fracture type: closed Laterality: right Qualified Code(s): S22.31XS - Fracture of one rib, right side, sequela Code(s): S22.39XA - Fracture of one rib, unspecified side, 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 for closed fracture Status: Acute DS: Summary Hospital Course Reason for hospitalization: Nausea, vomiting, and diarrhea Hospital Course: Kristi Agrawal is a 74 year old female with PMH significant for GERD, arthritis, osteopenia, and HLD who presented to the ED 12/25/19 with c/o nasuea, vomiting, and diarrhea x1 day. She also noted vague periumbilical abdominal discomfort. She was diagnosed with a right 8th rib fracture 12/09/19 after a fall 12/06/19. Initial workup in the ED revealed WBC 8,100, Hb 15.5, Hct 45.7, sodium 136, potassium 3.8, chloride 97, CO2 29, BUN 18, Cr 0.8, random glucose of 160, bilirubin 0.8, AST 31, ALT 19, ALP 140, lipase 67, and calcium 10.6. CT abd/pelvis revealed a 6mm in the common bile duct with mild intrahepatic and extrahepatic biliary dilatation. GI was consulted and she was admitted to the hospitalist service for further evaluation and management. She underwent ERCP 12/27/[address] Adams which revealed a clear bile duct, indicating that she likely passed the stone. She had post-procedure discomfort with epigastric pain, dyspepsia, and nausea and was monitored closely. She was able to advance her diet and her symptoms resolved. She had a prior hx of cholecystectomy in 1992. Her potassium was low and was replaced. This was felt to be due to decreased PO intake. LFTs were elevated 12/28/19 with AST 272, ALT 375, and bilirubin of 4.7. Simvastatin was placed on hold. She was monitored overnight and her labs were repeated today and showed improvement so she was cleared from a GI standpoint for discharge. She was feeling much better and requested to go home. She was advised that she will need a repeat CMP in 3 days to check her potassium and LFTs. She was discharged in stable condition on the afternoon of 12/30/2019. Status at Discharge Functional status at discharge: independent ambulation Overall status at discharge: patient is back to baseline Time Spent with Patient Time attestation: Total time spent providing and/or coordinating discharge services: 35 minutes Exam Narrative: Exam Narrative: Vitals at presentation: Temp Pulse Resp BP Pulse Ox 98.1 F 94 19 142/69 H 98 12/25/19 22:45 12/25/19 22:45 12/25/19 22:45 12/25/19 22:45 12/25/19 22:45 Vitals at discharge: Temp Pulse Resp BP
[2019-12-30 14:00] VITALS: BP 153/67; PULSE 78; RESP 18; TEMP 36.3; O2SAT 99
== END 2019-12-30 18:00 | disposition home or self-care (01) | DRG 446 ==
LOC: ANHED 12-26 01:55 → ANH3MED 12-26 03:26
PROVIDERS: Internal Medicine Gastroenterology; Physician Assistant; Admitting Provider Internal Medicine; Emergency Provider Emergency Medicine; PCP Family Medicine; Visit Provider Hospitalist
PROC: 0F7C8ZZ Dilation of Ampulla of Vater, Via Natural or Artificial Opening Endoscopic (ICD-10-PCS; CPT 43260; principal; 2019-12-27 10:15)
DX: K80.50 Calculus of bile duct without cholangitis or cholecystitis without obstruction (principal); S22.31XD Fracture of one rib, right side, subsequent encounter for fracture with routine healing; W19.XXXD Unspecified fall, subsequent encounter; R74.8 Abnormal levels of other serum enzymes; K21.9 Gastro-esophageal reflux disease without esophagitis; E78.2 Mixed hyperlipidemia; M85.80 Other specified disorders of bone density and structure, unspecified site; M19.90 Unspecified osteoarthritis, unspecified site; E87.6 Hypokalemia; Z87.891 Personal history of nicotine dependence; E66.9 Obesity, unspecified; Z68.32 Body mass index [BMI] 32.0-32.9, adult; Z90.49 Acquired absence of other specified parts of digestive tract
CPT/HCPCS: 36415; 73562; 74177; 74329; 80048; 80053; 81001; 83036; 83690; 83735; 85025; 85027; 93005; 96361; 96365; 96375; 96376; 99285; A9270; C9113; G0378; J0131; J0330; J1100; J1650; J2001; J2405; J2704; J7030; J7120; Q9967

== ENCOUNTER 2020-03-24 20:15 | Emergency (ER) | payer MEDICARE, BC, SELFPAY ==
[2020-03-24 20:17] VITALS: BP 118/89; PULSE 81; RESP 19; TEMP 36.4; O2SAT 98
--- NOTE | 2020-03-24 21:03 | ED.ANIMALBIT ---
HPI - Animal Bite General Chief Complaint: Animal Bite Stated Complaint: cat bite Time Seen by Provider: 03/24/20 21:02 History of Present Illness HPI narrative: Cat bite to the left hand 4 days ago. Wrapped the hand after the bite. Di note increasing pain, but did not look at it again until today when she removed that wrap. At that time she noted significant redness and swelling around the bite wound. Full ROM in the hand, although it is painful. No fever, or other sytemic symptoms. Related Data Home Medications Medication Instructions Recorded Confirmed calcium carbonate-vitamin D3 600 1 tablet PO BID 08/23/19 12/26/19 mg (1,500 mg)-800 unit tablet cholecalciferol (vitamin D3) 25 1,000 unit PO DAILY 08/23/19 12/26/19 mcg (1,000 unit) capsule coenzyme Q10 200 mg capsule 200 mg PO DAILY 08/23/19 12/26/19 glucosamin 375 mg-chond 300 1 cap PO DAILY 08/23/19 12/26/19 mg-collagen 50 mg-hyaluronic acid 2 mg cap scqhmfon-qjg-vbnlq ac 400 1 tablet PO DAILY 08/23/19 12/26/19 mcg-calcium carb 500 mg-vit K1 20 mcg tablet vitamin B complex 1 tablet PO DAILY 08/23/19 12/26/19 Salonpas 1 patch TOPICAL DAILY 12/26/19 12/26/19 Allergies Allergy/AdvReac Type Severity Reaction Status Date / Time oxycodone Allergy Severe seziures Verified 01/06/20 08:32 Sulfa (Sulfonamide Allergy Mild hives Verified 12/24/19 09:59 Antibiotics) sulfite Allergy Unknown HIVES, Verified 12/24/19 09:59 SWELLING hydrocodone Allergy Unknown Verified 12/27/19 09:58 Review of Systems Review of Systems: All systems reviewed & are unremarkable except as noted in HPI and below Constitutional: Constitutional: Denies chills, Denies fever(s) and Denies weakness Cardiovascular: Cardiovascular: Denies chest pain Respiratory: Respiratory: Denies dyspnea Gastrointestinal: Gastrointestinal: Denies nausea and Denies vomiting Musculoskeletal: Musculoskeletal: Denies back pain Neurologic: Denies dizziness and Denies weakness PMFSH Past Medical History Medical History Arthritis Elevated liver enzymes Fracture of one rib, right side, subsequent encounter for fracture with routine healing GERD (gastroesophageal reflux disease) Mixed hyperlipidemia Nausea Nausea and vomiting in adult Normal nuclear stress test Obesity Osteopenia after menopause Rib fracture Syncopal episodes Surgical History Surgical History History of total knee arthroplasty R S/P carpal tunnel release S/P cholecystectomy Family History Family History Sibling Patient's sister is in good health Father Cerebrovascular accident Grandparent Cerebrovascular accident Mother Lung cancer Social History Social History Social History: The patient is . 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 She wishes to be a full code and has designated her son Minh Lujan as her surrogate decision maker. Years smoked: 3 Smoking status: Former smoker Tobacco type: cigarettes Second hand tobacco smoke exposure: No Alcohol intake: never Substance use: never Substance use type: does not use Gender identity (if verbalized by the patient): Female Spiritual care concerns: No Exam Const: General: healthy appearing, no acute distress and alert Orientation/consciousness: patient oriented x3 HENMT: Head: normal to inspection Resp: Effort & Inspection: normal respiratory effort Auscultation: clear to auscultation bilaterally Cardio: Rate: regular rate Rhythm: regular rhythm Skin: Other: Erythema and induration of the dorsum of the left hand with central fluctuance. Neuro: General: patient oriented x3 and moves all extremities Speech: normal speech Other: Motor and se
[2020-03-24] MEDS: TETANUS,DIPHTHERIA,AC PERTUSSIS ADULT (0.5 ML) BOOSTRIX IM (22:20)
[2020-03-24] MEDS: AMOXICILLIN/CLAVULANATE K 875-125 MG TAB 1 TABLET PO (22:20)
[2020-03-24 22:27] VITALS: BP 120/77; PULSE 65; RESP 18; O2SAT 99
== END 2020-03-24 22:28 | disposition home or self-care (01) ==
PROVIDERS: Emergency Provider Emergency Medicine; PCP Family Medicine
DX: L02.511 Cutaneous abscess of right hand (principal); S61.452A Open bite of left hand, 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; M19.90 Unspecified osteoarthritis, unspecified site; K21.9 Gastro-esophageal reflux disease without esophagitis; E78.2 Mixed hyperlipidemia; E66.9 Obesity, unspecified; Z68.31 Body mass index [BMI] 31.0-31.9, adult; M85.80 Other specified disorders of bone density and structure, unspecified site; Z96.651 Presence of right artificial knee joint; Z87.891 Personal history of nicotine dependence; Z23 Encounter for immunization; W55.01XA Bitten by cat, 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
CPT/HCPCS: 10060; 87070; 87077; 87205; 90471; 90715; 99283; A9270

== ENCOUNTER → 2020-04-15 12:23 | Outpatient (CLI) | payer MEDICARE, BC, SELFPAY ==
--- NOTE | ~2020-04-15 | DEXA_ITS ---
Bone Density Report Name: Kristi Agrawal Age: 75 Sex: Female Ethnicity: White Date of : 1945 Indication: postmenopausal osteoporosis; monitoring treatment; height loss; prior fracture; Referring Provider: Jill Mills Study: Bone densitometry was performed. Exam Date: April 15, 2020 Accession number: [id number] Bone Density: Region BMD T-score Z-score Classification AP Spine (L1-L4) 0.765 -2.6 -0.2 Osteoporosis Femoral Neck (Left) 0.709 -1.3 0.8 Osteopenia Total Hip (Left) 0.884 -0.5 1.3 Normal Femoral Neck (Right) 0.756 -0.8 1.2 Normal Total Hip (Right) 0.870 -0.6 1.2 Normal Total Hip Mean 0.877 -0.6 1.3 Normal World Health Organization criteria for BMD impression classify patients as: Normal (T-score at or above -1.0), Osteopenia (T-score between -1.0 and -2.5), or Osteoporosis (T-score at or below -2.5). 10-year Fracture Risk: FRAX not reported because: Some T-score for Spine Total or Hip Total or Femoral Neck at or below -2.5 Previous Exams: Region Exam Age BMD T-score BMD Change BMD Change Date g/cm2 vs Baseline vs Previous AP Spine(L1-L4) 04/15/2020 75 0.765 -2.6 0.052* 0.052* 10/26/2012 67 0.713 -3.0 Total Hip(Left) 04/15/2020 75 0.884 -0.5 0.063* 0.063* 10/26/2012 67 0.821 -1.0 Total Hip(Right) 04/15/2020 75 0.870 -0.6 0.061* 0.061* 10/26/2012 67 0.809 -1.1 *Denotes significance at 95% confidence level, LSC for AP Spine = 0.022 g/cm2, LSC for Total Hip = 0.027 g/cm2 Clinical Information Provided by Patient: Has had a low trauma fracture Is being treated for osteoporosis Has used the following medications: Fosamax (i.e. alendronate), Vitamin D, Calcium Patient maximum height was 62 Menopause Age: 55 Does not regularly consume dairy products Drinks caffeinated beverages Onset of menses at age 12 Number of children 1 Impression: The patient has established osteoporosis, based on the Total Spine T-score and the existence of a prior fracture. The patient has risk factors, including: previous fracture. No significant bone loss was observed. Discussion: PATIENT UNDER TREATMENT WITH NO SIGNIFICANT BMD LOSS SINCE LAST EXAM. In an untreated patient, BMD typically declines with age. A lack of decline or gain is usually a sign that treatment is efficacious and fracture risk is reduced. It is important to ask patients whether they are taking their medic
--- NOTE | ~2020-04-15 | MM_ITS ---
EXAMINATION: MM screening [facility] w chadd HISTORY: Screening mammogram TECHNIQUE: Craniocaudal and mediolateral oblique 3-D tomosynthesis images were obtained and synthetic 2-D images were generated. CAD analysis was submitted and interpreted. COMPARISON: 02/14/2019, 02/27/2017, 02/09/2016 bilateral digital screening mammogram examinations BREAST PARENCHYMAL COMPOSITION: There are scattered areas of fibroglandular density. FINDINGS: There is no evidence of suspicious mass, calcification, or architectural distortion to sugg est malignancy in either breast. There has been no suspicious interval change. IMPRESSION: 1. No mammographic evidence of malignancy. 2. Recommend routine screening mammography in one year. BI-RADS Category 1: Negative Reviewed, dictated and finalized at location A.
== END ==
PROVIDERS: PCP Family Medicine; Visit Provider Physician Assistant
DX: Z12.31 Encounter for screening mammogram for malignant neoplasm of breast (principal); Z78.0 Asymptomatic menopausal state; M81.0 Age-related osteoporosis without current pathological fracture; M85.852 Other specified disorders of bone density and structure, left thigh
CPT/HCPCS: 77063; 77067; 77080

== ENCOUNTER 2020-07-09 11:55 | Outpatient (NON) | payer MEDICARE, BC, SELFPAY ==
[2020-07-09 22:01] LABS: SARS-CoV-2 RNA PCR Positive
== END 2020-07-09 11:56 ==
LOC: ANHCOVIDDT 11:59
PROVIDERS: Physician Assistant; PCP Family Medicine; Visit Provider Family Medicine
DX: U07.1 COVID-19 (principal)
CPT/HCPCS: 87635; C9803; U0003

== ENCOUNTER → 2020-07-22 13:25 | Outpatient (CLI) | payer MEDICARE, BC, SELFPAY ==
--- NOTE | ~2020-07-22 | XR_ITS ---
EXAMINATION: XR chest 2V EXAM DATE: 07/22/2020 13:46 INDICATION: R05 - Cough. TECHNIQUE: Frontal and lateral projections of the chest obtained and reviewed. Comparison is made to prior examination from 10/02/2018. FINDINGS: The lungs are clear. There are no pleural effusions. The cardiomediastinal silhouette is within normal limits. There is no pneumothorax suspected. There are bony degenerative changes. IMPRESSION: No acute cardiopulmonary findings. Reviewed, dictated and finalized at location B. E EXAMINER
== END ==
PROVIDERS: PCP Family Medicine; Visit Provider Family Medicine
DX: R05 Cough (principal)
CPT/HCPCS: 71046

== ENCOUNTER → 2021-05-26 11:42 | Outpatient (CLI) | payer MEDICARE, BC, SELFPAY ==
--- NOTE | ~2021-05-26 | MR_ITS ---
EXAMINATION: MR brain/brain stem wo/w con EXAM DATE: 05/26/2021 12:40 INDICATION: Repeated falls, abnormalities of gait and mobility. TECHNIQUE: Magnetic resonance imaging (MRI) of the brain/brain stem obtained without contrast. Sagit radha T1, axial diffusion, gradient echo (T2*), T1, T2, FLAIR sequences obtained. Patient was then inj ected with 14 cc intravenous Multihance contrast. Coronal high-resolution T2-weighted sequences throu gh the internal auditory canals. Axial and coronal postcontrast T1 weighted sequences obtained. Ther e is no prior study for comparison. FINDINGS: Posterior fossa, internal auditory canals, 7th/8th cranial nerve complexes are symmetric an d unremarkable. There are no areas of restricted diffusion to suggest acute infarction. There is no acute hemorrhage seen on the T2*, a hemosiderin sensitive sequence. No intraparenchymal brain mass. Minimal microangiopathy. The ventricles are normal in size. There are no extra-axial collections. F low voids are seen in the cerebral arteries on the T2-weighted sequences consistent with their expect ed patency. The orbits are unremarkable. Soft tissue is unremarkable. Trace mastoid effusions. Sm all left frontal lobe development of venous anomaly, low flow lesion which is not clinically signific ant. No other areas of abnormal enhancement. IMPRESSION: 1. Minimal microangiopathy. 2. Incidental left frontal DVA, not clinically significant. Reviewed, dictated and finalized at location A.
[2021-05-26 12:15] LABS: Estimated Glomerular Filt Rate > 60
== END ==
PROVIDERS: PCP Family Medicine; Visit Provider Family Medicine
DX: R26.9 Unspecified abnormalities of gait and mobility (principal); I73.9 Peripheral vascular disease, unspecified
CPT/HCPCS: 70553; A9577

== ENCOUNTER → 2021-06-14 12:33 | Outpatient (CLI) | payer MEDICARE, BC, SELFPAY ==
--- NOTE | ~2021-06-14 | MM_ITS ---
EXAMINATION: MM screening [facility] BI w chadd HISTORY: Screening mammogram TECHNIQUE: Craniocaudal and mediolateral oblique 3-D tomosynthesis images were obtained and synthetic 2-D images were generated. CAD analysis was submitted and interpreted. COMPARISON: 04/15/2020, 02/14/2019, 02/27/2017 BREAST PARENCHYMAL COMPOSITION: There are scattered areas of fibroglandular density. FINDINGS: There is no evidence of suspicious mass, calcification, or architectural distortion to sugg est malignancy in either breast. There has been no suspicious interval change. IMPRESSION: 1. No mammographic evidence of malignancy. 2. Recommend routine screening mammography in one year. BI-RADS Category 1: Negative Reviewed, dictated and finalized at location A. MS SUPPORT SPECIALIST
== END ==
PROVIDERS: PCP Family Medicine; Visit Provider Family Medicine
DX: Z12.31 Encounter for screening mammogram for malignant neoplasm of breast (principal)
CPT/HCPCS: 77063; 77067

== ENCOUNTER → 2022-11-11 13:06 | Outpatient (CLI) | payer MEDICARE, BC, SELFPAY ==
--- NOTE | ~2022-11-11 | DEXA_ITS ---
Bone Density Report Name: JOSELYN VILLALBA Age: 77 Sex: Female Ethnicity: White Date of : 1945 Indication: postmenopausal osteoporosis; monitoring treatment; height loss; prior fracture; Referring Provider: JU CORTEZ Study: Bone densitometry was performed. Exam Date: November 11, 2022 Accession number: [id number] Bone Density: Region BMD T-score Z-score Classification AP Spine (L1-L4) 0.892 -1.4 1.1 Osteopenia Femoral Neck (Left) 0.683 -1.5 0.7 Osteopenia Total Hip (Left) 0.941 0.0 1.9 Normal Femoral Neck (Right) 0.689 -1.4 0.8 Osteopenia Total Hip (Right) 0.900 -0.3 1.6 Normal Total Hip Mean 0.921 -0.2 1.8 Normal World Health Organization criteria for BMD impression classify patients as: Normal (T-score at or above -1.0), Osteopenia (T-score between -1.0 and -2.5), or Osteoporosis (T-score at or below -2.5). 10-year Fracture Risk: FRAX not reported because: Treated for osteoporosis Previous Exams: Region Exam Age BMD T-score BMD Change BMD Change Date g/cm2 vs Baseline vs Previous AP Spine(L1-L4) 11/11/2022 77 0.892 -1.4 0.180 0.128 04/15/2020 75 0.765 -2.6 0.052* 0.052* 10/26/2012 67 0.713 -3.0 Total Hip(Left) 11/11/2022 77 0.941 0.0 0.120 0.056 04/15/2020 75 0.884 -0.5 0.063* 0.063* 10/26/2012 67 0.821 -1.0 Total Hip(Right) 11/11/2022 77 0.900 -0.3 0.091 0.030 04/15/2020 75 0.870 -0.6 0.061* 0.061* 10/26/2012 67 0.809 -1.1 *Denotes significance at 95% confidence level, LSC for AP Spine = 0.022 g/cm2, LSC for Total Hip = 0.027 g/cm2 Clinical Information Provided by Patient: Has had a low trauma fracture Is being treated for osteoporosis Has used the following medications: Fosamax (i.e. alendronate), Vitamin D, Calcium, MTV Patient maximum height was 62.0 Menopause Age: 55 No regular weight bearing exercise Does not regularly consume dairy products Drinks caffeinated beverages Onset of menses at age 12 Number of children 1 Impression: The patient has low bone mass, based on the Left Femoral Neck T-score. The patient has risk factors, including: previous fracture. No significant bone loss was observed. Discussion: PATIENT UNDER TREATMENT WITH NO SIGNIFICANT BMD LOSS SINCE LAST EXAM. In an untreated patient, BMD typically declines with age. A lack of decline or gain is u
--- NOTE | ~2022-11-11 | MM_ITS ---
EXAMINATION: MM screening [facility] BI w chadd HISTORY: Screening mammogram TECHNIQUE: Craniocaudal and mediolateral oblique 3-D tomosynthesis images were obtained and synthetic 2-D images were generated. CAD analysis was submitted and interpreted. COMPARISON: 06/14/2021, 04/15/2020, 02/14/2019 BREAST PARENCHYMAL COMPOSITION: There are scattered areas of fibroglandular density. FINDINGS: No suspicious mass, calcification, or architectural distortion are identified in either khang ast to suggest malignancy. There has been no suspicious interval change. IMPRESSION: 1. No mammographic evidence of malignancy. 2. Recommend routine screening mammography in one year. BI-RADS Category 1: Negative Reviewed, dictated and finalized at location A.
== END ==
PROVIDERS: PCP Family Medicine; Visit Provider Family Medicine
DX: Z12.31 Encounter for screening mammogram for malignant neoplasm of breast (principal); Z78.0 Asymptomatic menopausal state; M85.88 Other specified disorders of bone density and structure, other site; M85.852 Other specified disorders of bone density and structure, left thigh; M85.851 Other specified disorders of bone density and structure, right thigh
CPT/HCPCS: 77063; 77067; 77080

== ENCOUNTER 2022-12-31 11:22 | Emergency (ER) | payer MEDICARE, BC, SELFPAY ==
--- NOTE | 2022-12-31 11:30 | ED.SKABFB ---
HPI - Skin/Abscess/Foreign Bdy General Chief complaint: Skin/Abscess/Foreign Body Stated complaint: Rash Time Seen by Provider: 12/31/22 11:25 Source: patient Mode of arrival: ambulatory Limitations: no limitations History of Present Illness HPI narrative: Kristi is a 77-year-old female patient presenting to clinic today with complaints of a rash. She reports she has had this rash for 3-4 days. Rash is painful and itching. No history of shingles however she has had the shingles shot. States that there are new lesions that popped up today on her right leg, other lesions are on her right side abdomen and right side of her back. Patient has been putting triamcinolone cream, Benadryl cream and taking oral Benadryl for her symptoms. Related Data Home Medications Medication Instructions Recorded Confirmed calcium carbonate 600 mg-vitamin 1 tablet PO BID 08/23/19 08/26/22 D3 20 mcg (800 unit) tablet cholecalciferol (vitamin D3) 25 1,000 unit PO DAILY 08/23/19 08/26/22 mcg (1,000 unit) capsule coenzyme Q10 200 mg capsule (Co 200 mg PO DAILY 08/23/19 08/26/22 Q-10) glucosamin 375 mg-chond 300 1 cap PO DAILY 08/23/19 08/26/22 mg-collagen 50 mg-hyaluronic acid 2 mg cap vitamin B complex 1 tablet PO DAILY 08/23/19 08/26/22 biotin 5,000 mcg disintegrating 10,000 mcg PO DAILY 05/07/21 08/26/22 tablet omega 1-daw-ero-fish oil 60 mg-90 1 cap PO DAILY 05/07/21 08/26/22 mg-500 mg capsule (Fish Oil) pediatric multivitamin no.76 1 tablet PO DAILY 05/07/21 08/26/22 (Flintstones Complete chewable tablet) Allergies Allergy/AdvReac Type Severity Reaction Status Date / Time oxycodone Allergy Severe seziures Verified 12/31/22 11:37 Sulfa (Sulfonamide Allergy Mild hives Verified 12/31/22 11:37 Antibiotics) sulfite Allergy Unknown HIVES, Verified 12/31/22 11:37 SWELLING hydrocodone Allergy Unknown Verified 12/31/22 11:37 Review of Systems Review of Systems: Pertinent positives per HPI. Patient denies any fever, chills, headache, visual changes, dizziness, cough, runny nose, sore throat, shortness of breath, chest pain, palpitations, nausea, vomiting, diarrhea, constipation, abdominal pain, or any urinary issues. [facility] Past Medical History Medical History (Updated 12/31/22 @ 11:37 by Michael Leon APRN) Arthritis Elevated liver enzymes Fracture of one rib, right side, subsequent encounter for fracture with routine healing GERD (gastroesophageal reflux disease) Mixed hyperlipidemia Nausea Nausea and vomiting in adult Normal nuclear stress test Obesity Osteopenia after menopause Rib fracture Syncopal episodes Surgical History Surgical History History of total knee arthroplasty R S/P carpal tunnel release S/P cholecystectomy Family History Family History Sibling Patient's sister is in good health Father Cerebrovascular accident Grandparent Cerebrovascular accident Mother Lung cancer Social History Social History Social History: The patient is . 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 She wishes to be a full code and has designated her son Minh Lujan as her surrogate decision maker. Years smoked: 3 Smoking status: Former smoker Tobacco type: cigarettes Second hand tobacco smoke exposure: No Alcohol intake: never Substance use: never Substance use type: does not use Living arrangements: with family Occupation/Education: retired Gender identity (if verbalized by the patient): Female Sexual Orientation (if Verbalized by the Patient): Straight or Heterosexual Spiritual care concerns: No Comments At the time of my signature, I reviewed and agree with the nursing past medical, surgical, social, and family h
[2022-12-31 11:34] VITALS: BP 156/68; PULSE 78; RESP 12; TEMP 36.8; O2SAT 97
== END 2022-12-31 11:42 | disposition home or self-care (01) ==
PROVIDERS: Emergency Provider Nurse Practitioner Family; PCP Family Medicine
DX: B02.9 Zoster without complications (principal); Z87.891 Personal history of nicotine dependence; M19.90 Unspecified osteoarthritis, unspecified site; K21.9 Gastro-esophageal reflux disease without esophagitis; E78.2 Mixed hyperlipidemia; E66.9 Obesity, unspecified; Z68.34 Body mass index [BMI] 34.0-34.9, adult; Z96.651 Presence of right artificial knee joint; M81.0 Age-related osteoporosis without current pathological fracture
CPT/HCPCS: 99213; G0463

== ENCOUNTER 2025-03-19 12:50 | Emergency (ER) | payer MEDICARE, SELFPAY ==
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
[2025-03-19 13:00] VITALS: BP 125/67; PULSE 82; RESP 18; TEMP 36.4; O2SAT 96
== END 2025-03-19 13:16 | disposition short-term general hospital (02) ==
LOC: EXPCOLL 12:53
PROVIDERS: Emergency Provider Nurse Practitioner Family; PCP Family Medicine
DX: R11.2 Nausea with vomiting, unspecified (principal); R19.7 Diarrhea, unspecified; E86.0 Dehydration; R53.1 Weakness; R42 Dizziness and giddiness; R10.30 Lower abdominal pain, unspecified; E78.2 Mixed hyperlipidemia; Z87.891 Personal history of nicotine dependence
CPT/HCPCS: 99212; G0463

== ENCOUNTER 2025-03-19 13:46 | Emergency (ER) | payer MEDICARE, SELFPAY ==
--- NOTE | ~2025-03-19 | CT_ITS ---
EXAMINATION: CT abdomen pelvis w con DATE: 03/19/2025 17:28 INDICATION: Abdominal pain and diarrhea TECHNIQUE: Computed tomography (CT) of the abdomen and pelvis was performed with 100 mL Omnipaque-350 intravenous contrast. Automated exposure control and iterative reconstruction technique were employed. The dose-length product was 625.27 mGy-cm. COMPARISON: CT dated 12/25/2019 FINDINGS: Heart size is normal. No pericardial or pleural effusion. Unchanged chronic mild intra and extra hepatic biliary ductal dilation likely related to prior cholecystectomy with surgical clips the gallbladder fossa. Liver is otherwise unremarkable. A couple splenic calcifications along with calcified bilateral hilar lymph nodes consistent with old granulomatous disease. Pancreas, bilateral adrenal glands and right kidney are normal. 1.4 similar exophytic left renal cyst. Normal appendix. There several scattered diverticula predominantly along the sigmoid colon without adjacent from trace stranding to suggest diverticular colitis. No bowel obstruction. Small fat-containing umbilical hernia. Bladder, anteverted uterus and bilateral adnexa are unremarkable. No free intraperitoneal gas or fluid. No pathologically enlarged abdominal or pelvic lymphadenopathy. Severe lumbar and moderate thoracic spondylosis with bridging osteophytes at multiple levels in the mid to lower thoracic spine consistent with diffuse idiopathic skeletal hyperostosis (DISH). IMPRESSION: 1. No acute intra-abdominal/pelvic process. Reviewed, dictated and finalized at location A.
--- OUTSIDE RECORDS SUMMARY | 2025-03-19 13:50 | XMS_ITS | Clinical Summary ---
Author Organization [facility] Address [address] [place] [id number] Care Team Providers Care Rn Pediatric Icu Name Role Phone Valerie Blackburn MD Unavailable [phone] Donte Sanders DO Primary Care Provider [phone] Active Problems Problem Noted Date Diagnosed Date Syncope 05/11/2018 Family History Medical History Relation Comments Stroke Father Cancer Mother Stroke Paternal Grandmother Relation Status Comments Father Mother Paternal Grandmother Social History Tobacco Use Types Packs/Day Years Used Date Smoking Tobacco: Former Alcohol Use Standard Drinks/Week Comments No 0 (1 standard drink = 0.6 oz pur e alcohol) AUDIT-C Answer Date Recorded Frequency of Alcohol Consumption Never 05/11/2018 Average Number of Drinks Not on file 018 Frequency of Binge Drinking Not on file 04/23 Comments Unknown Sex and Gender Information Value Date Recorded Sex Assigned at Not on file Legal Sex Female 7:00 PM CDT Gender Identity Not on file Sexual Orientation Not on file Plan of Treatment Health Maintenance Due Date Last Done Comments Hepatitis C 1963 DTaP, Tdap and Td Vaccines ( 1 - Tdap) 1964 Pneumococcal Vaccine: 50+ Ye ars (1 of 1 - PCV) 1995 Zoster Vaccines (1 of 2) 1995 Annual Medicare Wellness Visit 2010 Dexa Scan (General) 2010 RSV Immunization or 60+ Years (1 - 1-dose 75+ series) 2020 COVID-19 Vaccine ( - 2023-2 5 season) 2024 Meningococcal B Vaccine Aged Out No l onger eligible based on patient's age to complete this topic Meningococcal Vaccine Aged Out No sylwia marquez eligible based on patient's age to complete this topic RSV Immunizations Under 20 Months Aged Out No longer eligible based on patient's age to complete this topic Insurance MEDICARE [facility] GENERIC - COMMERCIAL MEDICARE [facility] Care Teams Rn Pediatric Icu Relationship Specialty Start Date End Date Donte Sanders DO [address] [place] [address] PCP - General INTERNAL MEDICINE 05/01/18 Valerie Blackburn MD [address] [place] [address] FAMILY PRACTICE 05/01/18
--- OUTSIDE RECORDS SUMMARY | 2025-03-19 13:50 | XMS_ITS | Clinical Summary ---
Author Organization [facility] Address [address] [place] [address] Care Team Providers Care Osd Clerk Name Role Phone Valerie Blackburn MD Primary Care Provider + Sd Harry MD Unavailable [phone] Source Comments [facility],non-owned Affiliates and Associated Physician Practices is amultiple site organization consisting of ambulatory clinics and hospital sitesin [place], [place], [place] and [place]. This disclosure is being madepursuant to the Care Everywhere program and may not contain all information available regarding this patient. Last updated 18.[facility] Allergies Active Allergy Reactions Criticality Noted Date Comments Codeine Unknown 04/13/2018 Medications * Be aware that medications may not be up to date on this document. Alwaysverify current medications with the patient. 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 Gender Identity Not on file Sexual Orientation Not on file Last Filed Vital Signs Vital Sign Reading Time Taken Comments Blood Pressure 131/85 06/28/2010 10:57 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 Pulse 112 06/28/2010 10:57 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 Temperature - - Respiratory Rate 14 06/28/2010 10:57 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 Oxygen Saturation - - Inhaled Oxygen Concentration - - Weight 72.6 kg (160 lb) 04/13/2018 8:32 AM CDT Height 152.4 cm (5') 04/13/2018 8:32 AM CDT Body Mass Index 31.25 04/13/2018 8:32 AM CDT Plan of Treatment Health Maintenance Due Date Last Done Comments BONE DENSITY TESTING 1945 DTAP/TDAP/TD VACCINES (1 - Tdap) 1964 PNEUMOCOCCAL VACCINE 50+ (1 of 1 - PCV) 1995 ZOSTER VACCINE (1 of 2) 1995 Respiratory Syncytial Virus (RSV) Vaccine Pt: or over 60 yrs (1 - 1-dose 75+ series) 2020 COVID-19 VACCINE ( - 2023-2 5 season) 2024 DEPRESSION SCREENING 07/24/2024 INFLUENZA VACCINE (#1) 2025 HEPATITIS B VACCINE Aged Out No longe r eligible based on patient's age to complete this topic HIB VACCINE Aged Out No longer eligi ble based on patient's age to complete this topic HPV VACCINE Aged Out No longer eligi ble based on patient's age to complete this topic MENINGOCOCCAL (Group B) VACC INE SHARED DECISION-MAKING Aged Out No longer eligibl e based on patient's age to complete this topic MENINGOCOCCAL GROUPS A/C/Y/W VACCINE Aged Out No longer eligible b ased on patient's age to complete this topic Insurance MEDICARE [employer] Care Teams Osd Clerk Relationship Specialty Start Date End Date Valerie Blackburn MD [address] [place] [address] PCP - General Family Medicine 04/13/18 [place] [id number] [address] [place] [address] Orthopedic Surgery 04/13/18
[2025-03-19 16:16] LABS: Hematocrit 44.4 % (37.0-47.0); Hemoglobin 14.3 g/dL (12.0-15.0); Immature Granulocyte Percent A 0.2 % (0-0.5); Lymphocytes Absolute Auto 1.33 K/mm3 (0.9-3.2); Mean Corpuscular HGB Conc 32.2 g/dl (32-36); Mean Corpuscular Hemoglobin 29.8 pg (26-34); Mean Corpuscular Volume 92.5 fl (80-100); Nucleated Red Blood Cells Absolute Auto 0.000 K/mm3 (0.0-0.012); Nucleated Red Blood Cells Perc 0.0 % (0.0-0.2); Platelet Count Result 246 k/mm3 (150-375); Red Blood Count 4.80 M/mm3 (4.2-5.4); White Blood Count 6.2 K/mm3 (4.5-10.0)
[2025-03-19 16:27] LABS: Alanine Aminotransferase 18 U/L (6-35); Albumin Level 4.3 g/dL (3.5-5.1); Alkaline Phosphatase 64 U/L (38-126); Anion Gap 8 mmol/L (4-12); Aspartate Amino Transferase 37 U/L (14-36); Bilirubin,Total 0.5 mg/dL (0.2-1.3); Blood Urea Nitrogen 16 mg/dL (7-17); Calcium 10.0 mg/dL (8.4-10.2); Carbon Dioxide 28 mmol/L (22-30); Chloride 102 mmol/L (98-107); Estimated CRCL calculation 47 ml/min; Estimated Glomerular Filt Rate > 60; Glucose 122 mg/dL (65-110); Lipase 91 U/L (23-300); Potassium 4.1 mmol/L (3.4-5.0); Sodium 138 mmol/L (137-145); Total Protein 7.5 g/dL (6.3-8.2)
[2025-03-19 16:28] VITALS: BP 153/62; PULSE 63; RESP 18; TEMP 36.9; O2SAT 95
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
[2025-03-19 16:35] LABS: Add Urine Microscopic? YES; Appearance Urine Cloudy (Clear); Glucose Urine UA Negative (Negative); Leukocyte Esterase Ur 2+ LEU/UL (Negative); Need Manual Microscopic Reviewed; Nitrate Urine Negative (Negative); Non Pathogenic Casts 0-2; Specific Grav Ur 1.021 (1.001-1.035)
--- OUTSIDE RECORDS SUMMARY | 2025-03-19 16:44 | XMS_ITS | Clinical Summary ---
Author Organization [facility] Address [address] [place] [address] Care Team Providers Care Academic Advising Director Name Role Phone Valerie Blackburn MD Primary Care Provider + Sd Harry MD Unavailable [phone] Source Comments [facility],non-owned Affiliates and Associated Physician Practices is amultiple site organization consisting of ambulatory clinics and hospital sitesin [place], [place], [place] and [place]. This disclosure is being madepursuant to the Care Everywhere program and may not contain all information available regarding this patient. 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
--- OUTSIDE RECORDS SUMMARY | 2025-03-19 16:44 | XMS_ITS | Clinical Summary ---
Author Organization [facility] Address [address] [place] [id number] Care Team Providers Care Landscape Drafter Name Role Phone Valerie Blackburn MD Unavailable [phone] Donte Sanders DO Primary Care Provider [phone] Active Problems Problem Noted Date Diagnosed Date [...] age to complete this topic Insurance MEDICARE [facility] GENERIC - COMMERCIAL MEDICARE [facility] Care Teams Landscape Drafter Relationship Specialty Start Date End Date Donte Sanders DO [address] [place] [address] PCP - General INTERNAL MEDICINE 05/01/18 Valerie Blackburn MD [address] [place] [address] FAMILY PRACTICE 05/01/18
[2025-03-19] MEDS: SODIUM CHLORIDE 0.9% IV 500 ML 999 ML IV CONT (17:07)
[2025-03-19] MEDS: cefTRIAXone 1 GM in SODIUM CHLORIDE 0.9% IV 50 ML 100 ML IVPB (18:26)
== END 2025-03-19 19:12 | disposition home or self-care (01) ==
PROVIDERS: Emergency Provider Physician Assistant; PCP Family Medicine
DX: N39.0 Urinary tract infection, site not specified (principal); K21.9 Gastro-esophageal reflux disease without esophagitis; E78.5 Hyperlipidemia, unspecified; M19.90 Unspecified osteoarthritis, unspecified site
CPT/HCPCS: 36415; 74177; 80053; 81001; 83690; 85025; 96361; 96365; 99284; J0696; J7040; Q9967

== ENCOUNTER 2025-05-26 14:08 | Outpatient (CLI) | payer MEDICARE, SELFPAY ==
--- NOTE | ~2025-05-26 | MM_ITS ---
EXAMINATION: MM screening benny BI w chadd HISTORY: Screening TECHNIQUE: Craniocaudal and mediolateral oblique 3-D tomosynthesis images were obtained and synthetic 2-D images were generated. CAD analysis was submitted and interpreted. COMPARISON: Comparison to multiple prior studies sequentially, with oldest reviewed study dated , 02/27/2017 BREAST PARENCHYMAL COMPOSITION: There are scattered areas of fibroglandular density. FINDINGS: There is no evidence of suspicious mass, calcification, or architectural distortion to suggest malignancy in either breast. IMPRESSION: 1. No mammographic evidence of malignancy. 2. Recommend routine screening mammography in one year. BI-RADS Category 1: Negative Reviewed, dictated and finalized at location B. 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
== END 2025-05-26 14:09 | disposition home or self-care (01) ==
PROVIDERS: PCP Family Medicine
DX: Z12.31 Encounter for screening mammogram for malignant neoplasm of breast (principal)
CPT/HCPCS: 77063; 77067